=== PATIENT | male | born 1940 | race Caucasian/White ===

== ENCOUNTER 2016-10-28 22:34 | Inpatient (IN) ==
--- NOTE | 2016-10-28 22:57 | Emergency Department Note ---
Disposition Clinical Impression: Cellulitis, Dehydration, Vomiting, Bandemia, Gastroenteritis Disposition: Admitted As Inpatient Condition: Good [facility] Care Provider[facility] - Forms: Work/School Release, ED Satisfaction Letter Time of Disposition: 02:40 General Adult HPI - General Chief complaint: ED General Medical Stated complaint: Vomiting/temp Time Seen by Provider: 10/28/16 22:40 Source: patient, EMS Limitations: no limitations Nursing Notes Reviewed: Yes Vital Signs Reviewed: Yes - History of Present Illness HPI Narrative: 75-year-old male presents emergency room for nausea vomiting since today. States he does not feel well. Has had low-grade fevers and diaphoresis today. He also thinks he has been vomiting blood at times today but then serially throughout once and then states that it was brown in color. He thinks his stool has been black and brown at times but is uncertain. He denies any abdominal pain. No chest pain or shortness of breath. He thinks he is on a blood thinner but cannot remember it. He is also complaining of severe swelling of his right distal lower extremity. Denies any history of pulmonary embolus or DVT. He does have a history of atrial fibrillation. Pain Scale: 0 Treatments Prior to Arrival: none - Related Data Home Medications Medication Instructions Recorded Confirmed Allopurinol [Zyloprim 300 MG] 300 mg PO DAILY 03/14/16 03/14/16 Aspirin [Ecotrin] 325 mg PO DAILY 03/14/16 03/14/16 Carvedilol [Coreg] 25 mg PO BID 03/14/16 03/14/16 Chlorhexidine Gluconate [Peridex] 15 ml MM BID PRN 03/14/16 03/14/16 Dextran 70/Hypromellose/Pf 1 drop BOTH EYES 5XD PRN 03/14/16 03/14/16 [Artificial Tears Drops] Furosemide [Lasix] 10 mg PO DAILY 03/14/16 03/14/16 Lisinopril [Zestril] 10 mg PO DAILY 03/14/16 03/14/16 Magnesium Hydroxide [Milk of 30 ml PO DAILY PRN 03/14/16 03/14/16 Magnesia] Magnesium Oxide [Mag-Ox] 400 mg PO BID 03/14/16 03/14/16 Omeprazole [PriLOSEC] 20 mg PO BID 03/14/16 03/14/16 Ondansetron HCl [Zofran] 4 mg PO Q6H PRN 03/14/16 03/14/16 Rivaroxaban [Xarelto] 20 mg PO DAILY 03/14/16 03/14/16 Sennosides/Docusate Sodium 2 tab PO BID PRN 03/14/16 03/14/16 [Senna-Docusate Sodium Tablet] Simvastatin [Zocor] 40 mg PO DAILY 03/14/16 03/14/16 Tramadol HCl [Ultram] 50 mg PO Q6H PRN 03/14/16 03/14/16 Previous Rx's Medication Instructions Recorded Docusate [Colace] 100 mg PO BID #30 capsule 03/15/16 OxyCODONE/APAP 5/325 [Percocet 1 each PO Q6HR PRN #30 tablet 03/15/16 5/325 MG] Allergies Allergy/AdvReac Type Severity Reaction Status Date / Time No Known Allergies Allergy Verified 03/13/16 23:32 Constitutional: Reports: fever, chills ENT ED: Denies: ear pain Cardiovascular: Reports: other (Lower extremity swelling). Denies: chest pain, palpitations Respiratory: Denies: cough, dyspnea, wheezes Gastrointestinal: Reports: nausea, vomiting. Denies: abdominal pain, diarrhea, constipation Genitourinary: Reports: as per HPI Musculoskeletal: Reports: as per HPI Integumentary: Reports: as per HPI Neurological: Reports: as per HPI Psychiatric: Reports: as per HPI Endocrine: Reports: as per HPI Hematological/Lymphatic: Reports: as per HPI Past Medical History - Past Medical History Medical history: Reports: atrial fibrillation, CVA, GERD, other Psychiatric history: Reports: no psych history - Social History Smoking Status: Never smoker Smokeless Tobacco Status: No Alcohol use: Reports: occasionally Drug use: Reports: none Physical Exam - General Limitations: no limitations General appearance: alert, in no apparent distress - Head Head exam: atraumatic, normocephalic - Eye Eye exam: Present: normal appearance - ENT ENT exam: normal exam, normal oropharynx - Neck Neck exam: Present: normal inspection - Chest Chest inspection: Present: normal inspection, symmetric chest wall rise - Respiratory Respiratory exam: Present: normal lung sounds bilaterally. Absent: respiratory distress, wheezes - Cardiovascular Cardiovascular exam: Present: regular rate, irregular rhythm - Abdominal Exam Abdominal exam: Present: soft, Non-Tender, normal bowel sounds. Absent: tenderness, distention - Extremities Exam Extremities exam: Present: tenderness, pedal edema, calf tenderness (Patient has significant swelling of the distal right lower extremity with some blister formation in severe redness. It is warm to touch about the portillo and calf. It is only on the right side.) - Back Exam Back exam: Present: normal inspection - Neurological Exam Neurological exam: Present: alert, oriented X3 - Psychiatric Psychiatric exam: Present: normal affect, normal mood - Skin Skin exam: Present: diaphoresis Course Course Narrative: Patient's Hemoccult was negative. No evidence of any blood. Patient elevation and the BUN/creatinine consistent with some dehydration. Chest x-ray was negative. Patient did have an elevated white count with a left shift including bands. I did order blood cultures. It appears as though he has got a cellulitis of the right lower extremity. It was negative for DVT on the Doppler exam. Patient will need to be admitted for the vomiting diarrhea dehydration and cellulitis. Vital Signs Temperature 98.8 F 10/28/16 22:37 Pulse Rate 97 10/28/16 22:37 Respiratory Rate 24 10/28/16 22:37 Blood Pressure 101/53 10/28/16 22:37 O2 Sat by Pulse Oximetry 100 10/28/16 22:37 Temperature 98.8 F 10/28/16 22:37 Pulse Rate 95 10/29/16 01:35 Respiratory Rate 18 10/29/16 01:35 Blood Pressure 107/68 10/29/16 01:35 O2 Sat by Pulse Oximetry 98 10/29/16 01:35 Oxygen Delivery Oxygen Delivery Room Air Medical Decision Making - Medical Records Medical records reviewed: Yes I reviewed the patient's medical records. - Lab Data Lab results reviewed: Yes I reviewed the patient's lab results. Result diagrams: 10/28/16 23:02 10/28/16 23:02 Lab Results 10/28/16 10/28/16 10/28/16 Range/Units 23:02 23:02 23:02 WBC 12.4 H (4.3-11.1) K/mcL RBC 3.84 L (4.19-5.50) M/mcL Hgb 11.0 L (12.9-16.9) g/dL Hct 34.0 L (37.5-50.1) % MCV 88.5 (83.0-100.0) fL MCH 28.6 (28.0-33.3) pg MCHC 32.4 (31.6-35.5) g/dL RDW 14.5 (11.5-14.5) % Plt Count 124 L (140-400) K/mcL MPV 11.0 (9.4-12.4) fL Seg Neutrophils % 62.0 % Band Neutrophils % 27.0 H (0-4) % Lymphocytes % 8.0 % Monocytes % 3.0 % Neutrophils # 11.0 H (1.6-8.9) K/mcL Lymphocytes # 1.0 (0.6-4.6) K/mcL Monocytes # 0.4 (0.0-1.3) K/mcL Platelet Estimate Slight Decrease L (Normal) Large Platelets Present A (Not Present) PT 27.0 H (9.4-12.1) Seconds INR 2.4 APTT 35.8 (26.0-36.0) Seconds Sodium 133 L (136-145) mEq/L Potassium 5.1 H (3.5-4.5) mEq/L Chloride 105 (98-109) mEq/L Carbon Dioxide 23 (19-29) mEq/L BUN 66 H (8-26) mg/dL Creatinine 1.88 H (0.72-1.25) mg/dL Est GFR ( Amer) 43 L (> 60) Est GFR (Non-Af Amer) 35 L (> 60) BUN/Creatinine Ratio 35 H (6-26) Glucose 170 H (70-99) mg/dL Calculated Osmolality 299 (280-300) Lactic Acid (0.5-2.2) mmol/L Calcium 9.3 (8.6-10.8) mg/dL Total Bilirubin 1.0 (0.2-1.2) mg/dL Direct Bilirubin 0.5 (0.0-0.5) mg/dL Indirect Bilirubin 0.5 (0.0-1.2) mg/dL AST 37 H (5-34) Units/L ALT 20 (0-55) Units/L Alkaline Phosphatase 50 (38-126) Units/L Troponin I (0-0.03) ng/mL Serum Total Protein 4.7 L (6.0-8.3) g/dL Albumin 2.2 L (3.5-5.0) g/dL Globulin 2.5 (2.4-3.5) g/dL Albumin/Globulin Ratio 0.9 L (1.1-2.2) Lipase 31 (8-78) Units/L Stool Occult Blood (Negative) 10/28/16 10/28/16 10/28/16 Range/Units 23:02 23:02 23:22 WBC (4.3-11.1) K/mcL RBC (4.19-5.50) M/mcL Hgb (12.9-16.9) g/dL Hct (37.5-50.1) % MCV (83.0-100.0) fL MCH (28.0-33.3) pg MCHC (31.6-35.5) g/dL RDW (11.5-14.5) % Plt Count (140-400) K/mcL MPV (9.4-12.4) fL Seg Neutrophils % % Band Neutrophils % (0-4) % Lymphocytes % % Monocytes % % Neutrophils # (1.6-8.9) K/mcL Lymphocytes # (0.6-4.6) K/mcL Monocytes # (0.0-1.3) K/mcL Platelet Estimate (Normal) Large Platelets (Not Present) PT (9.4-12.1) Seconds INR APTT (26.0-36.0) Seconds Sodium (136-145) mEq/L Potassium (3.5-4.5) mEq/L Chloride (98-109) mEq/L Carbon Dioxide (19-29) mEq/L BUN (8-26) mg/dL Creatinine (0.72-1.25) mg/dL Est GFR ( Amer) (> 60) Est GFR (Non-Af Amer) (> 60) BUN/Creatinine Ratio (6-26) Glucose (70-99) mg/dL Calculated Osmolality (280-300) Lactic Acid 2.0 (0.5-2.2) mmol/L Calcium (8.6-10.8) mg/dL Total Bilirubin (0.2-1.2) mg/dL Direct Bilirubin (0.0-0.5) mg/dL Indirect Bilirubin (0.0-1.2) mg/dL AST (5-34) Units/L ALT (0-55) Units/L Alkaline Phosphatase (38-126) Units/L Troponin I 0.07 H* (0-0.03) ng/mL Serum Total Protein (6.0-8.3) g/dL Albumin (3.5-5.0) g/dL Globulin (2.4-3.5) g/dL Albumin/Globulin Ratio (1.1-2.2) Lipase (8-78) Units/L Stool Occult Blood Negative (Negative) - Radiology Data Radiology results reviewed: Yes I reviewed the patient's radiology results. - EKG Data EKG #1 EKG results narrative: Rate of 92. Atrial fibrillation present. QRS 101. QTC 375. No signs of acute ischemia. atrial fibrillation was noted on previous EKG dating 2015. Critical Care Time Critical Care Time: Yes Total Critical Care Time: 35 Attestation: Critical care time spent in medical management of the patient's significant cellulitis, dehydration and workup of his vomiting and diarrhea and possible GI bleed.
[2016-10-28 23:10] LABS: Mean Corpuscular HGB Conc 32.4 g/dL (31.6-35.5); Mean Corpuscular Hemoglobin 28.6 pg (28.0-33.3); Mean Corpuscular Volume 88.5 fL (83.0-100.0); Platelet Count 124 K/mcL (140-400); Red Blood Count 3.84 M/mcL (4.19-5.50); Red Cell Distribution Width 14.5 % (11.5-14.5)
[2016-10-28 23:27] LABS: Albumin 2.2 g/dL (3.5-5.0); Albumin/Globulin Ratio 0.9 (1.1-2.2); Bilirubin,Direct 0.5 mg/dL (0.0-0.5); Bilirubin,Indirect 0.5 mg/dL (0.0-1.2); Calcium 9.3 mg/dL (8.6-10.8); Globulin 2.5 g/dL (2.4-3.5); Potassium 5.1 mEq/L (3.5-4.5); Total Protein 4.7 g/dL (6.0-8.3)
[2016-10-28 23:29] LABS: INR 2.4
[2016-10-28 23:31] LABS: Activated Partial Thrombo Time 35.8 Seconds (26.0-36.0)
[2016-10-28 23:40] LABS: Monocytes # 0.4 K/mcL (0.0-1.3)
[2016-10-28 23:41] LABS: Large Platelets Present (Not Present); Platelet Estimate Slight Decrease (Normal)
[2016-10-29] MEDS ORDERED: Ampicillin/Sulbactam 3,000 MG in 0.9 % Sodium Chloride Mini Bag 100 ML IVPB ONE (00:23)
[2016-10-29] MEDS ORDERED: 0.9 % Sodium Chloride 1,000 ML IVC ONE (01:52)
[2016-10-29] MEDS ORDERED: Ondansetron ODT 4 MG TAB.RAPDIS PO PRN ×2 (03:12→19:36)
[2016-10-29] MEDS ORDERED: *HR* OxyCODONE/APAP 5/325 TABLET PO PRN (03:12)
[2016-10-29] MEDS ORDERED: traMADol 50 MG TABLET PO PRN (03:12)
[2016-10-29] MEDS ORDERED: Naloxone 0.4 MG/ML INJ IVP PRN ×2 (03:13→19:36)
--- NOTE | 2016-10-29 03:21 | Internal Med History&Physical ---
Date of Encounter: 10/29/16 Time of Encounter: 03:20 Assessment and Plan (1) Cellulitis Current visit: Yes Status: Acute IV vanco, renally dosed, pharmacy to assist, monitor vanco Qualifiers: Site of cellulitis of extremity: lower extremity Laterality: right Qualified Code(s): L03.115 - Cellulitis of right lower limb (2) Gastroenteritis Current visit: Yes Status: Acute Symptoms suggestive of acute viral gastroenteritis. Supportive IVF. conservative management (3) FARIBA (acute kidney injury) Current visit: Yes Status: Acute 2/2 viral gastroenteritis. Pre-renal. Hydration for now. Avoid nephrotoxins if able (4) Atrial fibrillation Current visit: No Status: Chronic continue coreg and xarelto Qualifiers: Atrial fibrillation type: chronic Qualified Code(s): I48.2 - Chronic atrial fibrillation (5) Hyponatremia Current visit: Yes Status: Acute 2/2 pre-renal. IVF Internal Medicine - H&P: HPI Chief complaint: Diarrhea/N/V, LLE swelling/erythema History of present illness: Mr. Gore is a 75 year old male [facility] patient with hx of AFib on xarelto, HTN who presents with 1)acute viral gastroenteritis, 2)FARIBA and 3)worsening swelling of LLE found to have overlying cellulitis. He reports 1-2 day hx of diarrhea - dark (FOBT negative) associated with dry heaving and non-bloody emesis associated with decreased PO intake. Also noted worsening swelling and discomfort in his RLL in the last few days. No improving or worsening factors. He takes lasix at home. In the ED, RLL US was w/o evidence of VTE. CT A/P was grossly w/o acute issues. EKG with AFib. Past Med Surg Social Fam HX - Past Medical History Medical history: atrial fibrillation, CVA, GERD, other Psychiatric history: no psych history - Social History Smoking Status: Never smoker Smokeless Tobacco Status: No Alcohol use: occasionally Drug use: none - Family History Mother Adopted: No Living Status: Hx Family Cardiac Disorders: No Hx Family Respiratory Disorders: No Hx Family Cancer: No Hx Family GI Disorders: No Hx Family Endocrine Disorder: No Hx Family Neuromuscular Disorders: No Hx Family Neurologic Disorders: No Hx Family HEENT Disorders: No Hx Family Autoimmune Disorders: No Internal Medicine - H&P: Meds Allopurinol [Zyloprim 300 MG] 300 mg PO DAILY 03/14/16 [History] Aspirin [Ecotrin] 325 mg PO DAILY 03/14/16 [History] Carvedilol [Coreg] 25 mg PO BID 03/14/16 [History] Chlorhexidine Gluconate [Peridex] 15 ml MM BID PRN 03/14/16 [History] Dextran 70/Hypromellose/Pf [Artificial Tears Drops] 1 drop BOTH EYES 5XD PRN [History] Furosemide [Lasix] 10 mg PO DAILY 03/14/16 [History] Lisinopril [Zestril] 10 mg PO DAILY 03/14/16 [History] Magnesium Hydroxide [Milk of Magnesia] 30 ml PO DAILY PRN 03/14/16 [History] Magnesium Oxide [Mag-Ox] 400 mg PO BID 03/14/16 [History] Omeprazole [PriLOSEC] 20 mg PO BID 03/14/16 [History] Ondansetron HCl [Zofran] 4 mg PO Q6H PRN 03/14/16 [History] Rivaroxaban [Xarelto] 20 mg PO DAILY 03/14/16 [History] Sennosides/Docusate Sodium [Senna-Docusate Sodium Tablet] 2 tab PO BID PRN 03/14 [History] Simvastatin [Zocor] 40 mg PO DAILY 03/14/16 [History] Tramadol HCl [Ultram] 50 mg PO Q6H PRN 03/14/16 [History] Docusate [Colace] 100 mg PO BID #30 capsule 03/15/16 [Rx] OxyCODONE/APAP 5/325 [Percocet 5/325 MG] 1 each PO Q6HR PRN #30 tablet 03/15/16 [Rx] Allergies No Known Allergies Allergy (Verified 03/13/16 23:32) All Systems PM: A 10-system review of systems was performed and is negative for pertinent findings except as documented above in the HPI. Review of systems: ROS 14 point review of systems reviewed as best as possible given presentation. Pertinent positive or negative as per HPI or otherwise reviewed as negative - Constitutional Vitals: Temp Pulse Resp BP Pulse Ox 98.8 F 95 18 107/68 98 10/28/16 22:37 10/29/16 01:35 10/29/16 01:35 10/29/16 01:35 10/29/16 01:35 Exam: General - AAO x 3 Psych - Appropriate affect/speech. No agitation Eyes - [place]. Eye lids intact. No scleral icterus ENT - Oral mucosa pink, dentition intact. External ear clear/dry/intact. No thyromegaly Heart - irregularly irregular. S1 and S2 present. No added HS/murmurs appreciated. No elevated JVD appreciated. Lung - Adequate air entry b/l, No crackes/wheezes appreciated GI - Soft, non-tender. No hepatosplenomegaly/ascities. BS+ - No CVA/suprapubic tenderness or palpable bladder distension Skin - right lower extremity swelling +2 edema, erythema MSK - Joints with normal ROM. No joint swellings Internal Med - H&P Results - Labs CBC & Chem 7: 10/28/16 23:02 10/28/16 23:02 - Impressions ITS Impressions Abdomen/Pelvis CT 10/29/16 23:36 IMPRESSION: 1. Study is limited due to lack of IV contrast and motion artifact. 2. No definite acute abnormality of the abdomen or pelvis. 3. Mild nonspecific perinephric stranding. 4. Diffuse bladder wall thickening with a 2.2 cm diverticulum projecting off the anterior wall. Findings could represent sequela of chronic obstruction from BPH. Correlate for underlying cystitis. 5. Mild area of nonspecific stranding is noted along the right external iliac vessel of uncertain clinical significance. 6. Normal appendix. 7. No acute bowel abnormality. 8. Moderate to severe degenerative changes lumbar spine with and age-indeterminate compression deformity of the L1 vertebral body. D/ / Kamran Greco MD / Kamran Greco MD Interpreting Provider: Kamran Greco MD - VTE Reasons for not Prescribing Prophylaxis: Not indicated-Anticoagulated or INR therapeutic
[2016-10-29] MEDS ORDERED: Ipratropium/Albuterol Neb 3 ML IH PRN (03:32)
[2016-10-29] MEDS ORDERED: Vancomycin 2,000 MG in D5% in Water 500 ML IVPB ONE (04:00)
[2016-10-29] MEDS ORDERED: Vancomycin 1,000 MG in D5% in Water 250 ML IVPB SCH (04:00)
[2016-10-29 04:29] LABS: Hematocrit 33.4 % (37.5-50.1); Hemoglobin 10.6 g/dL (12.9-16.9); Mean Corpuscular HGB Conc 31.7 g/dL (31.6-35.5); Mean Corpuscular Hemoglobin 28.3 pg (28.0-33.3); Mean Corpuscular Volume 89.1 fL (83.0-100.0); Mean Platelet Volume 10.9 fL (9.4-12.4); Platelet Count 119 K/mcL (140-400); Red Blood Count 3.75 M/mcL (4.19-5.50); Red Cell Distribution Width 14.4 % (11.5-14.5)
[2016-10-29] MEDS: 0.9 % Sodium Chloride 1,000 ML IVC SCH ×3 (05:16→20:14)
[2016-10-29] MEDS: Ipratropium/Albuterol Neb 3 ML IH SCH ×2 (07:49→16:10)
[2016-10-29 08:00] LABS: Magnesium 1.2 mg/dL (1.6-2.6)
--- NOTE | 2016-10-29 08:05 | Venous Imaging Report ---
LE Venous Duplex Patient Name:Ciro Gore Order Number:[id number] Procedure Date:10/28/2016 Date:2Age:75 yrs Gender:Male Location:[facility] Room #: 2 Director Report:Tacos Mcneill Referring MD:Ronald Aleman, assembler clip on sunglasses:[facility] Reading MD:Rodolfo Teresa MD , FACS Primary Indications:Right leg swelling and redness Secondary Indications: Impressions: Right lower extremity: normal superficial and deep exam. Left lower extremity: normal contralateral exam. Recommendations: Critical findings reported to Mary SHEPHERD in person by Tacos Mcneill. Findings Venous Duplex Results: Right: The right peroneal vein was not well visualized. Prior Study: No prior study available for comparison. Lower Extremity Venous Duplex Side Vein Compress Spontaneous Flow Augment Diameter (cm) Depth (cm) Right Distal Iliac Normal Yes Phasic Yes Right Common Femoral Normal Yes Phasic Yes Right Superficial Femoral Normal Yes Phasic Yes Right Popliteal Normal Yes Phasic Yes Right Posterior Tibial Normal Yes Phasic Yes Right Peroneal Normal Yes Phasic Yes Right Saphenofemoral [place]unction Normal Yes Phasic Yes Right Great Saphenous Normal Yes Phasic Yes Right Lesser Saphenous Normal Yes Phasic Yes Left Common Femoral Normal Yes Phasic Yes Updated by Rodolfo Teresa MD, FACS on 10/29/2016 7:59:59 AM Rodolfo Teresa MD electronically signed on 10/29/2016 8:00:17 AM with status of Final
[2016-10-29] MEDS ORDERED: *HR* Rivaroxaban 10 MG TABLET PO SCH (09:00)
[2016-10-29] MEDS ORDERED: Aspirin Enteric Coated 325 MG Tablet PO SCH (09:00)
--- NOTE | 2016-10-29 09:15 | Electrocardiograph Report ---
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
[2016-10-29] MEDS ORDERED: Magnesium Sulfate 2 GM in D5% in Water 100 ML IVPB ONE (11:58)
[2016-10-29] MEDS ORDERED: Albuterol 2.5 MG/3 ML NEBULIZER IH PRN ×2 (11:59→19:36)
--- NOTE | 2016-10-29 15:32 | Electrocardiograph Report ---
[place] [address] Test Date: 2016-10-29 Pat Name: Ciro Gore Department: 115 Room: 3A Gender: M Waitstaff: : 1940 Requested By: Grupo Patricio Order Number: [id number] Reading MD: Renata Campos Measurements Intervals [place] Rate: 85 P: ME: 0 QRS: -21 QRSD: 97 T: 28 QT: 334 QTc: 376 Interpretive Statements ATRIAL FIBRILLATION BORDERLINE LEFT AXIS DEVIATION ABNORMAL RHYTHM ECG Electronically Signed On 10-29-2016 15:31:23 EDT by Renata Campos
--- NOTE | 2016-10-29 16:27 | Internal Med Progress Note ---
Date of Encounter: 10/29/16 Time of Encounter: 10:45 - Assessment and plan (1) GI bleed Current Visit: Yes Status: Acute Assessment and plan: Acute GI bleed - patient has melena - probably due to Xarelto and aspirin use Significant drop in H&H Gastroenterology consult pending Type and screen stat, 2 units PRBC transfusion stat Monitor H&H closely Qualifiers: GI bleed type/associated pathology: melena Qualified Code(s): K92.1 - Melena (2) Anemia due to acute blood loss Current Visit: Yes Status: Acute Assessment and plan: Anemia secondary to acute blood loss - secondary to acute GI bleed Type and screen stat, 2 units PRBC transfusion stat H&H every 6 hours Hold Xarelto (3) Cellulitis Current Visit: Yes Status: Acute Assessment and plan: Acute cellulitis of right lower leg Continue IV vancomycin and IV Rocephin Cultures pending Ultrasound Doppler - negative for DVT Chest x-ray - right lung was clear, small effusion on the left side EKG - atrial fibrillation Troponin - 0.06 CT of the abdomen and pelvis - no definite acute abnormality Cardiac telemetry, labs in a.m. Qualifiers: Site of cellulitis: extremity Site of cellulitis of extremity: lower extremity Laterality: right Qualified Code(s): L03.115 - Cellulitis of right lower limb (4) Atrial fibrillation Current Visit: No Status: Chronic Assessment and plan: Chronic atrial fibrillation, rate controlled - patient is on carvedilol and on Xarelto for anticoagulation Hold Xarelto Qualifiers: Atrial fibrillation type: chronic Qualified Code(s): I48.2 - Chronic atrial fibrillation (5) Gastroenteritis Current Visit: Yes Status: Acute Assessment and plan: Initial symptoms suggestive of acute viral gastroenteritis, continue IV fluids (6) FARIBA (acute kidney injury) Current Visit: Yes Status: Acute Assessment and plan: Acute kidney injury likely secondary to gastroenteritis - continue IV fluids Labs in a.m. - Time Spent With Patient 25 - 35 minutes - Subjective Interval history: Patient is awake and alert. Not in any distress. Complains of generalized weakness. Denies chest pain or shortness of breath. Patient presented with complaints of diarrhea and nausea and vomiting and worsening right lower leg swelling and redness. Patient has been admitted for acute cellulitis. Patient has bilateral 3+ pitting edema which is much worse on the right side with bilateral stasis dermatitis and erythema on the right side. Patient did have a bowel movement with dark colored stool. Initial fecal Hemoccult was negative but the second one is positive. Patient's H&H has now dropped and he will require PRBC transfusion. Gastroenterology consult is pending. No other acute events or complaints. - Constitutional Vitals: Temp Pulse Resp BP Pulse Ox 98.6 F 86 17 132/79 98 10/29/16 15:22 10/29/16 15:22 10/29/16 15:22 10/29/16 15:22 10/29/16 15:22 General appearance: Present: A&O X 3, morbidly obese, no acute distress, answers questions appropriately Exam: Generalized weakness, ill-appearing - Head Head exam: Present: atraumatic - Eye Eye exam: Present: EOMI - ENT ENT exam: Present: mucous membranes dry - Neck Neck exam general surgery: Present: supple - Respiratory Respiratory exam: Present: CTAB. Absent: rales, rhonchi, wheezes, tachypnea - Cardiovascular Cardiovascular exam: Present: RRR, +S1, +S2, systolic murmur - GI/Abdominal GI/Abdominal exam: Present: soft, no peritoneal signs. Absent: distended, firm , guarding, rigid, tenderness - Extremities Exam Extremities exam: Present: pedal edema (Bilateral leg pitting edema 3+, worse on the right side), tenderness (Right lower leg edema and tenderness), radial pulses palpable and symetrical. Absent: cyanotic - Skin Additional comments: Bilateral lower leg stasis dermatitis, erythema and tenderness over right lower leg Internal Medicine: Result - Labs CBC & Chem 7: 10/29/16 16:04 10/29/16 06:36 Labs: Short CBC 10/29/16 Range/Units 16:04 Hgb 7.0 L D (12.9-16.9) g/dL Hct 21.0 L (37.5-50.1) % Cardiac Enzymes 10/29/16 Range/Units 08:53 Troponin I 0.06 H* (0-0.03) ng/mL - ABG Interpretation ABG results: PT/INR, D-dimer PT 27.0 Seconds (9.4-12.1) H 10/28/16 23:02 - Impressions Impressions Abdomen/Pelvis CT 08/01/17 23:36 IMPRESSION: 1. Study is limited due to lack of IV contrast and motion artifact. 2. No definite acute abnormality of the abdomen or pelvis. 3. Mild nonspecific perinephric stranding. 4. Diffuse bladder wall thickening with a 2.2 cm diverticulum projecting off the anterior wall. Findings could represent sequela of chronic obstruction from BPH. Correlate for underlying cystitis. 5. Mild area of nonspecific stranding is noted along the right external iliac vessel of uncertain clinical significance. 6. Normal appendix. 7. No acute bowel abnormality. 8. Moderate to severe degenerative change of the lumbar spine with an age-indeterminate compression deformity of the L1 vertebral body. D/ / 10/29/2016 07:26:06 Kamran Greco MD / yelena Interpreting Provider: Kamran Greco MD - VTE Reasons for not Prescribing Prophylaxis: Not indicated-Anticoagulated or INR therapeutic Consult Discharge Plan - Plan [facility]errals: [facility] [Primary Care Provider] -
[2016-10-29] MEDS ORDERED: 0.9 % Sodium Chloride 250 ML ONE (18:05)
[2016-10-29] MEDS ORDERED: Pantoprazole 40 MG VIAL IVP SCH (18:40)
[2016-10-29] MEDS ORDERED: Pantoprazole 40 MG VIAL IVP ONE ×2 (19:09→19:36)
[2016-10-29] MEDS ORDERED: Pantoprazole 40 MG in 0.9 % Sodium Chloride Mini Bag 100 ML IVC SCH (19:15)
--- NOTE | 2016-10-29 19:47 | Internal Medicine Consult Note ---
Date of Encounter: 10/29/16 Time of Encounter: 19:45 - Assessment and Plan (1) Anemia due to acute blood loss Current Visit: Yes Status: Acute Assessment and plan: Because of the change in vitals, and his sudden drop in hemoglobin today, he does require some urgency. Will place him in the ICU, also he will receive appropriate transfusion I will provide some vitamin K as his INR somewhat elevated. I have discussed with the nursing staff in room the need for upper endoscopy and the plan is to do that in the morning risks and benefits have been discussed with him. If indeed his upper endoscopy looks normal, he would potentially benefit from an upper scope as well. Certainly this complicated with aspirin and Xarelto therapy (2) FARIBA (acute kidney injury) Current Visit: Yes Status: Acute (3) Cellulitis Current Visit: Yes Status: Acute Qualifiers: Site of cellulitis: extremity Site of cellulitis of extremity: lower extremity Laterality: right Qualified Code(s): L03.115 - Cellulitis of right lower limb (4) GI bleed Current Visit: Yes Status: Acute Assessment and plan: Differential to include esophagitis, peptic ulcer disease, AVM, diverticular bleeding also to be considered Qualifiers: GI bleed type/associated pathology: melena Qualified Code(s): K92.1 - Melena Internal Medicine - CN: HPI - Data of Consult Requesting Physician: Purvi Zhu MD - Consult Narrative Reason for consult: Hypotension and maroon stools History of present illness: Mr. Kay is a 75 year old male. I was asked to see this gentleman for possible need of endoscopy by the hospitalist service. He actually presented with cellulitis of the right leg, firstly this morning developed bloody maroon bowel movements of large amount. Recheck hemoglobin showed a 4.0 drop in his hemoglobin, and systolic blood pressure down to 86. Mr. kay is quite comfortable at this time, no complaints, has never had GI bleeding in the past. Has had colonoscopies in the past. But does not recall the last time. Reports no anti-inflammatory use, reports no heartburn and no previous history of ulcer disease. He's had no nausea no vomiting. [facility] Past Med Surg Social Fam HX - Past Medical History Medical history: atrial fibrillation, CVA, GERD, other Psychiatric history: no psych history - Social History Smoking Status: Never smoker Smokeless Tobacco Status: No Alcohol use: occasionally Drug use: none - Family History Mother Adopted: No Living Status: Hx Family Cardiac Disorders: No Hx Family Respiratory Disorders: No Hx Family Cancer: No Hx Family GI Disorders: No Hx Family Endocrine Disorder: No Hx Family Neuromuscular Disorders: No Hx Family Neurologic Disorders: No Hx Family HEENT Disorders: No Hx Family Autoimmune Disorders: No - Constitutional Constitutional: no anorexia, no chills, no excessive sweating, no fatigue, no fever(s), no weakness - Cardiovascular Cardiovascular ROS IM: edema, irregular heart rhythm, no chest pain, no diaphoresis, no dyspnea, no paroxysmal nocturnal dyspnea, no syncope - Respiratory Respiratory: no cough, no dyspnea, no hemoptysis - Gastrointestinal Gastrointestinal: change in bowel habits, hematochezia, no abdominal pain, no coffee ground emesis, no diarrhea, no dyspepsia, no dysphagia, no nausea, no vomiting - Neurological Neurological ROS: confusion, weakness Internal Medicine - CN: Meds Allopurinol [Zyloprim 300 MG] 300 mg PO DAILY 03/14/16 [History] Aspirin [Ecotrin] 325 mg PO DAILY 03/14/16 [History] Carvedilol [Coreg] 25 mg PO BID 03/14/16 [History] Chlorhexidine Gluconate [Peridex] 15 ml MM BID PRN 03/14/16 [History] Dextran 70/Hypromellose/Pf [Artificial Tears Drops] 1 drop BOTH EYES 5XD PRN [History] Furosemide [Lasix] 10 mg PO DAILY 03/14/16 [History] Lisinopril [Zestril] 10 mg PO DAILY 03/14/16 [History] Magnesium Hydroxide [Milk of Magnesia] 30 ml PO DAILY PRN 03/14/16 [History] Magnesium Oxide [Mag-Ox] 400 mg PO BID 03/14/16 [History] Omeprazole [PriLOSEC] 20 mg PO BID 03/14/16 [History] Ondansetron HCl [Zofran] 4 mg PO Q6H PRN 03/14/16 [History] Rivaroxaban [Xarelto] 20 mg PO DAILY 03/14/16 [History] Sennosides/Docusate Sodium [Senna-Docusate Sodium Tablet] 2 tab PO BID PRN 03/14 [History] Simvastatin [Zocor] 40 mg PO DAILY 03/14/16 [History] Tramadol HCl [Ultram] 50 mg PO Q6H PRN 03/14/16 [History] Docusate [Colace] 100 mg PO BID #30 capsule 03/15/16 [Rx] OxyCODONE/APAP 5/325 [Percocet 5/325 MG] 1 each PO Q6HR PRN #30 tablet 03/15/16 [Rx] Allergies No Known Allergies Allergy (Verified 03/13/16 23:32) Internal Medicine - CN: Exam - Constitutional Vitals: Temp Pulse Resp BP Pulse Ox 98.5 F 95 15 86/50 100 10/29/16 18:27 10/29/16 18:27 10/29/16 18:27 10/29/16 18:27 10/29/16 18:27 General appearance IM: Present: cooperative, A&O X 2, morbidly obese, pleasant, no acute distress - Head Head exam: Present: atraumatic - Eye Eye exam: Present: sclera anicteric - ENT ENT exam: Present: mucous membranes moist - Neck Neck exam general surgery: Present: full ROM, supple, trachea midline. Absent: nuchal rigidity - Respiratory Respiratory exam: Present: CTAB - Cardiovascular Cardiovascular exam IM: Present: distant heart sounds, irregular rhythm - GI/Abdominal GI/Abdominal exam IM: Present: normal bowel sounds, soft, no peritoneal signs. Absent: rebound, rigid, tenderness - Rectal Rectal exam: Present: deferred Internal Medicine - CN: Reslt - Labs CBC & Chem 7: 10/29/16 16:04 10/29/16 06:36 Labs: Short CBC 10/29/16 Range/Units 16:04 Hgb 7.0 L D (12.9-16.9) g/dL Hct 21.0 L (37.5-50.1) % Cardiac Enzymes 10/29/16 Range/Units 08:53 Troponin I 0.06 H* (0-0.03) ng/mL - ABG Interpretation ABG results: PT/INR, D-dimer PT 27.0 Seconds (9.4-12.1) H 10/28/16 23:02 - Impressions Impressions Abdomen/Pelvis CT 10/29/16 23:36 IMPRESSION: 1. Study is limited due to lack of IV contrast and motion artifact. 2. No definite acute abnormality of the abdomen or pelvis. 3. Mild nonspecific perinephric stranding. 4. Diffuse bladder wall thickening with a 2.2 cm diverticulum projecting off the anterior wall. Findings could represent sequela of chronic obstruction from BPH. Correlate for underlying cystitis. 5. Mild area of nonspecific stranding is noted along the right external iliac vessel of uncertain clinical significance. 6. Normal appendix. 7. No acute bowel abnormality. 8. Moderate to severe degenerative change of the lumbar spine with an age-indeterminate compression deformity of the L1 vertebral body. D/ / 10/29/2016 07:26:06 Kamran Greco MD / yelena Interpreting Provider: Kamran Greco MD Consult Discharge Plan - Plan [facility]: [facility] [Primary Care Provider[facility] -
[2016-10-29] MEDS ORDERED: *HR* Phytonadione 10 MG/ML AMPUL SQ ONE ×2 (19:56→20:30)
[2016-10-29] MEDS: Pantoprazole 40 MG in 0.9 % Sodium Chloride Mini Bag 100 ML IVC SCH (20:18)
[2016-10-30] MEDS: Pantoprazole 40 MG in 0.9 % Sodium Chloride Mini Bag 100 ML IVC SCH ×5 (00:42→21:12)
[2016-10-30] MEDS: 0.9 % Sodium Chloride 1,000 ML IVC SCH ×2 (00:42→11:49)
[2016-10-30 01:14] LABS: Hemoglobin 7.7 g/dL (12.9-16.9)
[2016-10-30 01:16] LABS: Hematocrit 23.5 % (37.5-50.1)
[2016-10-30] MEDS: Ipratropium/Albuterol Neb 3 ML IH SCH ×3 (02:21→16:09)
[2016-10-30] MEDS ORDERED: Vancomycin 1,500 MG in D5% in Water 250 ML IVPB SCH (04:00)
[2016-10-30] MEDS: Vancomycin 1,500 MG in D5% in Water 250 ML IVPB SCH (04:44)
[2016-10-30] MEDS ORDERED: 0.9 % Sodium Chloride Mini Bag 100 ML ONE (05:02)
[2016-10-30] MEDS ORDERED: Pantoprazole 40 MG VIAL IVP SCH (06:00)
[2016-10-30 07:21] LABS: Mean Corpuscular HGB Conc 32.6 g/dL (31.6-35.5); Mean Corpuscular Hemoglobin 29.2 pg (28.0-33.3); Red Cell Distribution Width 14.2 % (11.5-14.5)
[2016-10-30 07:23] LABS: Basophils % 0.1 %; Eosinophils # 0.1 K/mcL (0.0-0.6); Eosinophils % 1.3 %; Hemoglobin 7.5 g/dL (12.9-16.9); Immature Granulocytes % 0.7 % (0-4); Immature Platelets 6.2 % (1.1-6.1); Lymphocytes # 0.7 K/mcL (0.6-4.6); Lymphocytes % 7.7 %; Mean Corpuscular Volume 89.5 fL (83.0-100.0); Monocytes # 0.6 K/mcL (0.0-1.3); Monocytes % 6.4 %; Platelet Count 100 K/mcL (140-400); Red Blood Count 2.57 M/mcL (4.19-5.50); Segmented Neutrophils % 83.8 %
[2016-10-30 07:37] LABS: Calcium 8.5 mg/dL (8.6-10.8); Potassium 4.7 mEq/L (3.5-4.5)
[2016-10-30] MEDS ORDERED: *HR* FentaNYL (PF) 100 MCG/2 ML VIAL ONE (07:40)
[2016-10-30 07:47] LABS: Platelet Estimate Slight Decrease (Normal)
[2016-10-30] MEDS: *HR* Midazolam HCl 5 MG/5 ML VIAL IVP ONE ×2 (07:52→16:22)
[2016-10-30] MEDS: *HR* Midazolam HCl 2 MG/2 ML VIAL IVP PRN ×3 (07:52→08:10)
[2016-10-30] MEDS ORDERED: Simethicone 40 MG/0.6 ML MLS IR ONE (08:37)
[2016-10-30] MEDS ORDERED: *HR* FentaNYL (PF) 100 MCG/2 ML VIAL IVP PRN (08:37)
[2016-10-30] MEDS: Sucralfate 1 GM TABLET PO SCH ×3 (10:06→19:44)
[2016-10-30] MEDS ORDERED: 0.9 % Sodium Chloride 250 ML ONE (10:48)
[2016-10-30 11:21] LABS: INR 1.6; Prothrombin Time 17.2 Seconds (9.4-12.1)
--- NOTE | 2016-10-30 14:23 | Internal Med Progress Note ---
<Roney Auguste - Last Filed: 10/30/16 14:17> Date of Encounter: 10/30/16 Time of Encounter: 14:17 - Assessment and plan (1) Anemia due to acute blood loss Current Visit: Yes Status: Acute Assessment and plan: Anemia secondary to acute blood loss - secondary to acute GI bleed Transfused 4 Units of PRBC and 2 units FFP hgb up to 7.5 from 7.0. H&H every 6 hours Continue to hold Xarelto (2) GI bleed Current Visit: Yes Status: Acute Assessment and plan: Acute GI bleed - patient has melena - probably due to Xarelto and aspirin use Significant drop in H&H from 11 to 7. Now up to 7.5 Gastroenterology consulted Patient was scoped this morning and bleeding Duodenal ulcer was clipped. Non bleeding gastric ulcer and esophagitis also noted. Type and screen performed, transfused 4 units PRBC and 2 units of FFP Monitor H&H closely Qualifiers: GI bleed type/associated pathology: melena Qualified Code(s): K92.1 - Melena (3) Cellulitis Current Visit: Yes Status: Acute Assessment and plan: Acute cellulitis of right lower leg Continue IV vancomycin and IV Rocephin preliminary blood cultures are negative. Ultrasound Doppler - negative for DVT Chest x-ray - right lung was clear, small effusion on the left side EKG - atrial fibrillation Troponin - 0.06 CT of the abdomen and pelvis - no definite acute abnormality Cardiac telemetry, WBC down to 9.5 from 11.2 Qualifiers: Site of cellulitis: extremity Site of cellulitis of extremity: lower extremity Laterality: right Qualified Code(s): L03.115 - Cellulitis of right lower limb (4) Gastroenteritis Current Visit: Yes Status: Acute Assessment and plan: Initial presentation suggestive of acute viral gastroenteritis, continue IV fluids (5) Atrial fibrillation Current Visit: No Status: Chronic Assessment and plan: Patient has Chronic rate controlled atrial fibrillation - patient is on carvedilol and on Xarelto for anticoagulation Hold Xarelto Qualifiers: Atrial fibrillation type: chronic Qualified Code(s): I48.2 - Chronic atrial fibrillation (6) FARIBA (acute kidney injury) Current Visit: Yes Status: Acute Assessment and plan: Acute kidney injury likely secondary to deydration secondary to gastroenteritis - Cr 1.88 on admission now up to 1.91. continue IV fluids - Subjective Interval history: Patient had drop in hgb of 4 points. Patient was given 4 units of PRBC and 2 units of FFP. Patient had endoscopy by Dr. Lora this morning that showed a esophagitis, a stomach ulcer and a bleeding duodenal ulcer which Dr. Lora placed two clips in. Patient was seen post procedure. Patient reports nausea post procedure and some mild abdominal discomfort. Patient had one small loose dark bowel movement. - Constitutional Vitals: Temp Pulse Resp BP Pulse Ox 98 F 92 26 143/64 98 10/30/16 13:27 10/30/16 13:00 10/30/16 13:27 10/30/16 13:27 10/30/16 13:00 General appearance: Present: cooperative, A&O X 2, morbidly obese, pleasant, no acute distress - Eye Eye exam: Present: EOMI - ENT ENT exam: Present: mucous membranes moist - Respiratory Respiratory exam: Present: CTAB - Cardiovascular Cardiovascular exam: Present: RRR, +S1, +S2 - GI/Abdominal GI/Abdominal exam: Present: normal bowel sounds, soft, tenderness (mild diffuse) - Extremities Exam Extremities exam: Present: pedal edema (Bilateral leg pitting edema 3+, worse on the right side), tenderness (mild RLE), warm (RLE distal to knee) - Neurological Exam Neurological exam: Present: alert - Psychiatric Psychiatric exam: Present: normal affect, normal mood - Skin Skin exam: Present: erythema (RLE), warm (RLE) Internal Medicine: Result - Labs CBC & Chem 7: 10/30/16 07:01 10/30/16 07:01 Labs: Short CBC 10/29/16 10/30/16 10/30/16 Range/Units 16:04 00:28 07:01 WBC 9.5 (4.3-11.1) K/mcL Hgb 7.0 L D 7.7 L 7.5 L (12.9-16.9) g/dL Hct 21.0 L 23.5 L 23.0 L (37.5-50.1) % Plt Count 100 L (140-400) K/mcL Neutrophils # 8.0 (1.6-8.9) K/mcL BMP 10/30/16 07:01 Sodium 135 L Potassium 4.7 H Chloride 113 H Carbon Dioxide 16 L BUN 95 H D Creatinine 1.91 H Glucose 118 H Calcium 8.5 L - ABG Interpretation ABG results: PT/INR, D-dimer PT 17.2 Seconds (9.4-12.1) H 10/30/16 10:58 - Impressions Impressions Abdomen/Pelvis CT 10/29/16 23:36 IMPRESSION: 1. Study is limited due to lack of IV contrast and motion artifact. 2. No definite acute abnormality of the abdomen or pelvis. 3. Mild nonspecific perinephric stranding. 4. Nonobstructing left renal calculi. 5. Diffuse bladder wall thickening with a 2.2 cm diverticulum projecting off the anterior wall. Findings could represent sequela of chronic obstruction from BPH. Correlate for underlying cystitis. 6. Mild area of nonspecific stranding is noted along the right external iliac vessel of uncertain clinical significance. 7. Normal appendix. 8. No acute bowel abnormality. 9. Moderate to severe degenerative change of the lumbar spine with an age-indeterminate compression deformity of the L1 vertebral body. D/ / 10/29/2016 07:26:06 Kamran Greco MD / [email or web address] Interpreting Provider: Kamran Greco MD - VTE Reasons for not Prescribing Prophylaxis: Not indicated-Anticoagulated or INR therapeutic Consult Discharge Plan - Plan [facility]errals: [facility] [Primary Care Provider[facility] - <Owen Lora - Last Filed: 10/31/16 19:55> Date of Encounter: 10/31/16 - Assessment and plan (1) Anemia due to acute blood loss Current Visit: Yes Status: Acute (2) FARIBA (acute kidney injury) Current Visit: Yes Status: Acute (3) Cellulitis Current Visit: Yes Status: Acute Qualifiers: Site of cellulitis: extremity Site of cellulitis of extremity: lower extremity Laterality: right Qualified Code(s): L03.115 - Cellulitis of right lower limb (4) GI bleed Current Visit: Yes Status: Acute Qualifiers: GI bleed type/associated pathology: melena Qualified Code(s): K92.1 - Melena - Constitutional Vitals: Temp Pulse Resp BP Pulse Ox 98.3 F 90 28 113/62 100 10/30/16 17:07 10/30/16 17:07 10/30/16 17:07 10/30/16 17:07 10/30/16 17:07 Internal Medicine: Result - Labs CBC & Chem 7: 10/31/16 17:32 10/31/16 07:42 Labs: Short CBC 10/30/16 10/30/16 10/30/16 Range/Units 00:28 07:01 14:00 WBC 9.5 (4.3-11.1) K/mcL Hgb 7.7 L 7.5 L 8.6 L (12.9-16.9) g/dL Hct 23.5 L 23.0 L 27.2 L (37.5-50.1) % Plt Count 100 L (140-400) K/mcL Neutrophils # 8.0 (1.6-8.9) K/mcL BMP 10/30/16 07:01 Sodium 135 L Potassium 4.7 H Chloride 113 H Carbon Dioxide 16 L BUN 95 H D Creatinine 1.91 H Glucose 118 H Calcium 8.5 L - ABG Interpretation ABG results: PT/INR, D-dimer PT 17.2 Seconds (9.4-12.1) H 10/30/16 10:58 - Impressions Impressions Abdomen/Pelvis CT 10/29/16 23:36 IMPRESSION: 1. Study is limited due to lack of IV contrast and motion artifact. 2. No definite acute abnormality of the abdomen or pelvis. 3. Mild nonspecific perinephric stranding. 4. Nonobstructing left renal calculi. 5. Diffuse bladder wall thickening with a 2.2 cm diverticulum projecting off the anterior wall. Findings could represent sequela of chronic obstruction from BPH. Correlate for underlying cystitis. 6. Mild area of nonspecific stranding is noted along the right external iliac vessel of uncertain clinical significance. 7. Normal appendix. 8. No acute bowel abnormality. 9. Moderate to severe degenerative change of the lumbar spine with an age-indeterminate compression deformity of the L1 vertebral body. D/ / 10/29/2016 07:26:06 Kamran Greco MD / yelena Interpreting Provider: Kamran Greco MD - Attending Attestation I examined this patient and my medical decision-making was reviewed with the Resident Physician. I agree with the documented findings, disposition and treatment plan as described except to the extent set forth below. Will await path for H. Pylori.. he needs to stay in the Hospital for 3 days with PPI therapy given clot on Ulcer.
[2016-10-30 14:36] LABS: Hematocrit 27.2 % (37.5-50.1); Hemoglobin 8.6 g/dL (12.9-16.9)
[2016-10-30] MEDS: *HR* Heparin 5,000 UNIT/ML VIAL SQ SCH (17:50)
[2016-10-30] MEDS ORDERED: *HR* OxyCODONE/APAP 5/325 TABLET PO PRN (18:20)
[2016-10-31] MEDS: Pantoprazole 40 MG in 0.9 % Sodium Chloride Mini Bag 100 ML IVC SCH ×5 (01:40→22:44)
[2016-10-31] MEDS: Ipratropium/Albuterol Neb 3 ML IH SCH ×3 (02:23→16:33)
[2016-10-31] MEDS: Vancomycin 1,500 MG in D5% in Water 250 ML IVPB SCH (03:25)
[2016-10-31] MEDS: *HR* Heparin 5,000 UNIT/ML VIAL SQ SCH ×2 (05:58→17:31)
[2016-10-31] MEDS: Sucralfate 1 GM TABLET PO SCH ×4 (08:01→20:16)
[2016-10-31 08:02] LABS: Calcium 9.1 mg/dL (8.6-10.8); Potassium 4.6 mEq/L (3.5-4.5)
[2016-10-31 08:19] LABS: Basophils % 0.4 %; Eosinophils # 0.1 K/mcL (0.0-0.6); Eosinophils % 2.5 %; Hematocrit 20.4 % (37.5-50.1); Hemoglobin 6.9 g/dL (12.9-16.9); Immature Granulocytes % 1.2 % (0-4); Lymphocytes # 0.7 K/mcL (0.6-4.6); Lymphocytes % 13.6 %; Mean Corpuscular HGB Conc 33.8 g/dL (31.6-35.5); Mean Corpuscular Hemoglobin 29.1 pg (28.0-33.3); Mean Corpuscular Volume 86.1 fL (83.0-100.0); Mean Platelet Volume 11.6 fL (9.4-12.4); Monocytes # 0.4 K/mcL (0.0-1.3); Red Blood Count 2.37 M/mcL (4.19-5.50); Red Cell Distribution Width 14.9 % (11.5-14.5); Segmented Neutrophils % 74.3 %
[2016-10-31 08:32] LABS: Neutrophils # 3.9 K/mcL (1.6-8.9); Platelet Count 91 K/mcL (140-400)
[2016-10-31] MEDS ORDERED: 0.9 % Sodium Chloride 1,000 ML ONE (09:05)
[2016-10-31] MEDS ORDERED: Ondansetron ODT 4 MG TAB.RAPDIS PO PRN (11:01)
[2016-10-31] MEDS ORDERED: Naloxone 0.4 MG/ML INJ IVP PRN (11:01)
[2016-10-31] MEDS ORDERED: Albuterol 2.5 MG/3 ML NEBULIZER IH PRN (11:01)
[2016-10-31] MEDS: *HR* OxyCODONE/APAP 5/325 TABLET PO PRN ×2 (13:27→20:17)
--- NOTE | 2016-10-31 15:03 | Internal Med Progress Note ---
<JethroRoney hayden - Last Filed: 10/31/16 15:17> Date of Encounter: 10/31/16 Time of Encounter: 10:00 - Assessment and plan (1) Anemia due to acute blood loss Current Visit: Yes Status: Acute Assessment and plan: Anemia secondary to acute blood loss - secondary to acute GI bleed Patient had rebounded to 8.6 hgb yesterday s/p clipping duodenal ulcer and 4 units PRBS, 2 units FFP. This morning patient's Hgb had dropped back to 6.9. 2 units PRBC ordered. repeat H/H scheduled for 4 hrs post transfusion Will check again in the morning. unclear if ulcer bleeding more or if we're just catching up on the prior bleeding. If hgb not improved after this transfusion or drops again will consult for surgical intervention. Continue to hold Xarelto (2) GI bleed Current Visit: Yes Status: Acute Assessment and plan: See anemia due to acute blood loss. Qualifiers: GI bleed type/associated pathology: melena Qualified Code(s): K92.1 - Melena (3) Cellulitis Current Visit: Yes Status: Acute Assessment and plan: Debateable Acute cellulitis of right lower leg Patient reprots leg is always like that and does not appear to be impressive obvious cellulitis on exam. IV vanc stopped. Switched to PO keflex 500mg BID. preliminary blood cultures are negative. Ultrasound Doppler - negative for DVT Qualifiers: Site of cellulitis: extremity Site of cellulitis of extremity: lower extremity Laterality: right Qualified Code(s): L03.115 - Cellulitis of right lower limb (4) Gastroenteritis Current Visit: Yes Status: Acute Assessment and plan: Initial presentation suggestive of acute viral gastroenteritis, continue IV fluids H.Pylori biopsy negative. (5) Atrial fibrillation Current Visit: No Status: Chronic Assessment and plan: Patient has Chronic rate controlled atrial fibrillation - patient is on carvedilol and on Xarelto for anticoagulation which is being held due to GI bleed. Qualifiers: Atrial fibrillation type: chronic Qualified Code(s): I48.2 - Chronic atrial fibrillation (6) FARIBA (acute kidney injury) Current Visit: Yes Status: Acute Assessment and plan: likely secondary to deydration secondary to gastroenteritis - Cr improving down to 1.52 from 1.91 yesterday. Continue IV fluids. Will check BMP in the morning to continue to monitor - Subjective Interval history: Patient had a drop in hgb from 8.6 to 6.9. Patient had 2 units of PRBCs ordered as a result and follow up. Patient reports feeling well. He denies Abdominal pain, Chest pain, SOB. Patient reports his RLE always is bigger than the LLE and is always red and swollen. Per sursing patient had one bloody bowel movement overnight. - Constitutional Vitals: Temp Pulse Resp BP Pulse Ox 97.8 F 82 13 108/60 98 10/31/16 14:23 10/31/16 14:23 10/31/16 14:23 10/31/16 14:23 10/31/16 14:23 General appearance: Present: cooperative, A&O X 2, morbidly obese, pleasant, no acute distress - Eye Eye exam: Present: PERRL - ENT ENT exam: Present: mucous membranes moist - Respiratory Respiratory exam: Present: CTAB. Absent: rales, rhonchi, wheezes - Cardiovascular Cardiovascular exam: Present: irregular rhythm, +S1, +S2 - GI/Abdominal GI/Abdominal exam: Present: normal bowel sounds, soft. Absent: tenderness - Extremities Exam Additional comments: RLE Red, swollen, with skin changes. Not significantly warmer than LLE. - Neurological Exam Neurological exam: Present: alert. Absent: speech deficit - Psychiatric Psychiatric exam: Present: normal affect, normal mood - Skin Skin exam: Present: erythema (RLE) Internal Medicine: Result - Labs CBC & Chem 7: 10/31/16 07:42 10/31/16 07:42 Labs: Short CBC 10/31/16 Range/Units 07:42 WBC 5.2 (4.3-11.1) K/mcL Hgb 6.9 L D (12.9-16.9) g/dL Hct 20.4 L (37.5-50.1) % Plt Count 91 L (140-400) K/mcL Neutrophils # 3.9 (1.6-8.9) K/mcL BMP 10/31/16 07:42 Sodium 139 Potassium 4.6 H Chloride 116 H Carbon Dioxide 19 BUN 58 H D Creatinine 1.52 H Glucose 100 H Calcium 9.1 - ABG Interpretation ABG results: PT/INR, D-dimer PT 17.2 Seconds (9.4-12.1) H 10/30/16 10:58 - VTE Reasons for not Prescribing Prophylaxis: Not indicated-Anticoagulated or INR therapeutic Consult Discharge Plan - Plan [facility]errals: [facility] [Primary Care Provider[facility] - <Owen Lora - Last Filed: 10/31/16 20:33> Date of Encounter: 10/31/16 - Assessment and plan (1) Anemia due to acute blood loss Current Visit: Yes Status: Acute (2) FARIBA (acute kidney injury) Current Visit: Yes Status: Acute (3) Cellulitis Current Visit: Yes Status: Acute Qualifiers: Site of cellulitis: extremity Site of cellulitis of extremity: lower extremity Laterality: right Qualified Code(s): L03.115 - Cellulitis of right lower limb (4) GI bleed Current Visit: Yes Status: Acute Qualifiers: GI bleed type/associated pathology: melena Qualified Code(s): K92.1 - Melena - Constitutional Vitals: Temp Pulse Resp BP Pulse Ox 97.9 F 82 14 109/54 98 10/31/16 19:11 10/31/16 16:00 10/31/16 16:34 10/31/16 16:00 10/31/16 16:34 Internal Medicine: Result - Labs CBC & Chem 7: 10/31/16 17:32 10/31/16 07:42 Labs: Short CBC 10/31/16 10/31/16 Range/Units 07:42 17:32 WBC 5.2 (4.3-11.1) K/mcL Hgb 6.9 L D 8.7 L D (12.9-16.9) g/dL Hct 20.4 L 26.7 L (37.5-50.1) % Plt Count 91 L (140-400) K/mcL Neutrophils # 3.9 (1.6-8.9) K/mcL BMP 10/31/16 07:42 Sodium 139 Potassium 4.6 H Chloride 116 H Carbon Dioxide 19 BUN 58 H D Creatinine 1.52 H Glucose 100 H Calcium 9.1 - ABG Interpretation ABG results: PT/INR, D-dimer PT 13.0 Seconds (9.4-12.1) H 10/31/16 17:32 - Attending Attestation I examined this patient and my medical decision-making was reviewed with the Resident Physician. I agree with the documented findings, disposition and treatment plan as described except to the extent set forth below.
[2016-10-31 17:39] LABS: Hematocrit 26.7 % (37.5-50.1)
[2016-10-31 17:40] LABS: Hemoglobin 8.7 g/dL (12.9-16.9)
[2016-10-31 17:47] LABS: INR 1.2
[2016-10-31] MEDS: cephALEXin 500 MG CAPSULE PO SCH (20:16)
[2016-10-31] MEDS ORDERED: 0.9 % Sodium Chloride 250 ML ONE (22:24)
[2016-11-01] MEDS: Ipratropium/Albuterol Neb 3 ML IH SCH ×4 (02:32→23:29)
[2016-11-01] MEDS: *HR* OxyCODONE/APAP 5/325 TABLET PO PRN ×3 (03:14→20:59)
[2016-11-01] MEDS: Pantoprazole 40 MG in 0.9 % Sodium Chloride Mini Bag 100 ML IVC SCH ×2 (03:15→09:09)
[2016-11-01 04:46] LABS: Hematocrit 24.6 % (37.5-50.1); Mean Corpuscular HGB Conc 32.5 g/dL (31.6-35.5); Mean Corpuscular Hemoglobin 28.9 pg (28.0-33.3); Mean Corpuscular Volume 88.8 fL (83.0-100.0); Mean Platelet Volume 10.2 fL (9.4-12.4); Platelet Count 100 K/mcL (140-400); Red Blood Count 2.77 M/mcL (4.19-5.50); Red Cell Distribution Width 14.4 % (11.5-14.5)
[2016-11-01 05:05] LABS: BUN/Creatinine Ratio 28 (6-26); Calcium 9.5 mg/dL (8.6-10.8); Carbon Dioxide 21 mEq/L (19-29); Chloride 114 mEq/L (98-109); Glucose 94 mg/dL (70-99); Osmolality,Calculated 296 (280-300); Potassium 4.3 mEq/L (3.5-4.5); Sodium 139 mEq/L (136-145); eGFR For African Americans > 60 (> 60); eGFR For Non-African Americans 57 (> 60)
[2016-11-01 05:07] LABS: Blood Urea Nitrogen 35 mg/dL (8-26)
[2016-11-01] MEDS: Sucralfate 1 GM TABLET PO SCH ×4 (05:54→20:58)
[2016-11-01] MEDS: *HR* Heparin 5,000 UNIT/ML VIAL SQ SCH ×2 (05:54→17:01)
[2016-11-01] MEDS ORDERED: Pantoprazole 40 MG VIAL IVP SCH (09:00)
[2016-11-01] MEDS ORDERED: Aminoglycoside Consult 1 EACH MC ONE (09:04)
[2016-11-01] MEDS: cephALEXin 500 MG CAPSULE PO SCH ×2 (09:08→20:58)
[2016-11-01] MEDS: Pantoprazole 40 MG VIAL IVP SCH ×2 (09:10→20:59)
--- NOTE | 2016-11-01 14:55 | Discharge Summary ---
<Roney Auguste - Last Filed: 11/01/16 16:59> Date of Encounter: 11/01/16 Time of Encounter: 14:45 - Discharge Diagnosis (1) Anemia due to acute blood loss Priority: Primary Status: Acute (2) GI bleed Priority: Primary Status: Acute Qualifiers: GI bleed type/associated pathology: melena Qualified Code(s): K92.1 - Melena (3) Cellulitis Priority: Secondary Status: Acute Qualifiers: Site of cellulitis: extremity Site of cellulitis of extremity: lower extremity Laterality: right Qualified Code(s): L03.115 - Cellulitis of right lower limb (4) Gastroenteritis Priority: Secondary Status: Acute (5) Atrial fibrillation Priority: Secondary Status: Chronic Qualifiers: Atrial fibrillation type: chronic Qualified Code(s): I48.2 - Chronic atrial fibrillation (6) FARIBA (acute kidney injury) Priority: Secondary Status: Acute Comments: resolved. - Discharge Medications Prescriptions: cephALEXin [Keflex] 500 mg PO BID #6 Ferrous Sulfate 325 mg PO BIDWM #30 tab Sucralfate [Carafate] 1 gm PO QIDAC #30 tab Home Medications: Carvedilol [Coreg] 25 mg PO BID 03/14/16 [History] Furosemide [Lasix] 10 mg PO DAILY 03/14/16 [History] Lisinopril [Zestril] 10 mg PO DAILY 03/14/16 [History] Omeprazole [PriLOSEC] 20 mg PO BID 03/14/16 [History] Sennosides/Docusate Sodium [Senna-Docusate Sodium Tablet] 2 tab PO BID 03/14/16 [History] Simvastatin [Zocor] 40 mg PO HS 03/14/16 [History] Cholecalciferol (Vitamin D3) [Vitamin D3] 2,000 unit PO DAILY 10/29/16 [History] Hydrophilic Cream [Basle] 1 appl TP DAILY 10/29/16 [History] Ketoconazole 2% CRM [Nizoral Cream] 1 appl TP BID 10/29/16 [History] Ferrous Sulfate 325 mg PO BIDWM #30 tab 11/01/16 [Rx] Ipratropium/Albuterol Neb [Duoneb] 3 ml IH TIDR inh 11/01/16 [Rx] Sucralfate [Carafate] 1 gm PO QIDAC #30 tab 11/01/16 [Rx] cephALEXin [Keflex] 500 mg PO BID #6 11/01/16 [Rx] Allergies/Adverse Reactions: Allergies No Known Allergies Allergy (Verified 03/13/16 23:32) Procedures/tests Complete & Pending: CT Abd Pelvis: "IMPRESSION: 1. Study is limited due to lack of IV contrast and motion artifact. 2. No definite acute abnormality of the abdomen or pelvis. 3. Mild nonspecific perinephric stranding. 4. Nonobstructing left renal calculi. 5. Diffuse bladder wall thickening with a 2.2 cm diverticulum projecting off the anterior wall. Findings could represent sequela of chronic obstruction from BPH. Correlate for underlying cystitis. 6. Mild area of nonspecific stranding is noted along the right external iliac vessel of uncertain clinical significance. 7. Normal appendix. 8. No acute bowel abnormality. 9. Moderate to severe degenerative change of the lumbar spine with an age-indeterminate compression deformity of the L1 vertebral body." Endoscopy: "Impression: LA Grade C esophagitis Non bleeding gastric ulcer/ Biopsied. One oozing duodenal ulcer with adherent clot. Injected. Clips were placed." Date of admission: 10/29/16 08:02 [facility] Consults: 10/29/16 08:49 Consult to Physical Therapy [CONS] Routine Comment: Evaluate, develop and implement POC Reason for Consult: discharge planning OT [Consult to Occupational Therapy] [CONS] Routine Comment: Evaluate, develop and implement POC Reason for Consult: discharge planning 10/29/16 08:59 Consult to Carpet Cutter [CONS] Routine Reason for SW Consult: potential discharge needs 11/01/16 10:11 OT [Consult to Occupational Therapy] [CONS] Routine Comment: Evaluate, develop and implement POC Reason for Consult: weakness PT [Consult to Physical Therapy] [CONS] Routine Comment: Evaluate, develop and implement POC Reason for Consult: weakness 11/01/16 10:12 Consult to Carpet Cutter [CONS] Routine Reason for SW Consult: discharge planning Discharging clinician: Roney Auguste Anticipated date of discharge: 11/01/16 - Patient Status Disposition: Home, Self-Care Condition: Good Functional capacity at discharge: wheelchair bound Overall status at discharge: patient is progressing back to baseline - Discharge Instructions [facility] With: [facility] [Primary Care Provider[facility] - Additional Instructions: Please Follow Up with your primary care physician within one week. Please take your medicines as we have prescribed. Please stop your Xarelto, Tramadol, naproxen until you discuss with your primary care doctor. Please take your Keflex for the next 3 days as instructed. Please take the Carafate as directed. Please take the Iron supplement (Ferrous Sulfate) as directed. Please return to the Hospital if you have new or worsening symptoms. - Diet and Activity Activity: resume usual activities as tolerated Diet: advance to your usual diet Interval History: Patient reports feeling fine. Patient has had no bloody bowel movements overnight and his hgb level has remained steady. Patient is eager to go home. Hospital course: Mr. Gore is a 75 year old male [facility] patient with hx of AFib on xarelto, HTN who presents with 1)acute viral gastroenteritis, 2)FARIBA and 3)worsening swelling of LLE found to have overlying cellulitis. He reports 1-2 day hx of diarrhea - dark (FOBT negative) associated with dry heaving and non-bloody emesis associated with decreased PO intake. Patient developed acute blood loss anemia secondary to GI Bleed while in the hospital. Patient had drop in hgb of 4 points. Patient was given 4 units of PRBC and 2 units of FFP. Patient had endoscopy by Dr. Lora this morning that showed a esophagitis, a stomach ulcer and a bleeding duodenal ulcer which Dr. Lora placed two clips in. The next day his hgb was found to have dropped again. Patient was given 2 more units of PRBCs and 1 more unit of FFP. Patient has had stable hgb since and no more bloody bowel movements. Patient was deemed safe for discharge home on 11/01/16. - Time Spent with Patient Total time spent providing and/or coordinating discharge services: - Constitutional Vitals: Temp Pulse Resp BP Pulse Ox 98.7 F 84 18 148/72 100 11/01/16 10:58 11/01/16 10:58 11/01/16 10:58 11/01/16 10:58 11/01/16 10:58 General appearance: Present: cooperative, A&O X 2, morbidly obese, pleasant, no acute distress - Eye Eye exam: Present: PERRL, sclera anicteric - ENT ENT exam: Present: mucous membranes moist - Respiratory Respiratory exam: Present: CTAB - Cardiovascular Cardiovascular exam: Present: irregular rhythm, +S1, +S2 - GI/Abdominal GI/Abdominal exam: Present: normal bowel sounds, soft. Absent: tenderness - Extremities Exam Additional comments: RLE has erythema and skin changes. It is also swollen compared to the LLE. - Neurological Exam Neurological exam: Present: alert, oriented X3. Absent: speech deficit - Psychiatric Psychiatric exam: Present: normal affect, normal mood - Skin Skin exam: Present: erythema (RLE) - VTE Reasons for not Prescribing Prophylaxis: Not indicated-Anticoagulated or INR therapeutic <Owen Lora - Last Filed: 11/01/16 18:00> Date of Encounter: 11/01/16 - Discharge Diagnosis (1) Anemia due to acute blood loss Status: Acute (2) FARIBA (acute kidney injury) Status: Acute (3) Cellulitis Status: Acute Qualifiers: Site of cellulitis: extremity Site of cellulitis of extremity: lower extremity Laterality: right Qualified Code(s): L03.115 - Cellulitis of right lower limb (4) GI bleed Status: Acute Qualifiers: GI bleed type/associated pathology: melena Qualified Code(s): K92.1 - Melena Date of admission: 10/29/16 08:02 [facility] physician: [facility] Consults: 10/29/16 08:49 Consult to Physical Therapy [CONS] Routine Comment: Evaluate, develop and implement POC Reason for Consult: discharge planning OT [Consult to Occupational Therapy] [CONS] Routine Comment: Evaluate, develop and implement POC Reason for Consult: discharge planning 10/29/16 08:59 Consult to Carpet Cutter [CONS] Routine Reason for SW Consult: potential discharge needs 11/01/16 10:11 OT [Consult to Occupational Therapy] [CONS] Routine Comment: Evaluate, develop and implement POC Reason for Consult: weakness PT [Consult to Physical Therapy] [CONS] Routine Comment: Evaluate, develop and implement POC Reason for Consult: weakness 11/01/16 10:12 Consult to Carpet Cutter [CONS] Routine Reason for SW Consult: discharge planning Hospital course: Mr. Gore is a 75 year old male - Time Spent with Patient Total time spent providing and/or coordinating discharge services: - Constitutional Vitals: Temp Pulse Resp BP Pulse Ox 98.3 F 89 24 135/79 95 11/01/16 15:38 11/01/16 15:38 11/01/16 16:37 11/01/16 15:38 11/01/16 16:37 - Attending Attestation I examined this patient and my medical decision-making was reviewed with the Resident Physician. I agree with the documented findings, disposition and treatment plan as described except to the extent set forth below.
--- NOTE | 2016-11-01 17:50 | Physician Discharge Referral ---
ExtendedCare Referral Info Provider in Charge after Transfer: PCP Institutional Level of Care: Skilled - Diagnosis (1) Anemia due to acute blood loss Priority: Primary Status: Acute (2) GI bleed Priority: Secondary Status: Acute (3) Cellulitis Priority: Secondary Status: Acute (4) Gastroenteritis Priority: Secondary Status: Acute (5) Atrial fibrillation Priority: Secondary Status: Chronic (6) FARIBA (acute kidney injury) Priority: Secondary Status: Acute Prognosis: Good Aware of Diagnosis: Patient, Family Aware of Prognosis: Patient, Family - Transfer Medications Prescriptions: cephALEXin [Keflex] 500 mg PO BID #6 Ferrous Sulfate 325 mg PO BIDWM #30 tab Sucralfate [Carafate] 1 gm PO QIDAC #30 tab Home Medications: Carvedilol [Coreg] 25 mg PO BID 03/14/16 [History] Furosemide [Lasix] 10 mg PO DAILY 03/14/16 [History] Lisinopril [Zestril] 10 mg PO DAILY 03/14/16 [History] Omeprazole [PriLOSEC] 20 mg PO BID 03/14/16 [History] Sennosides/Docusate Sodium [Senna-Docusate Sodium Tablet] 2 tab PO BID 03/14/16 [History] Simvastatin [Zocor] 40 mg PO HS 03/14/16 [History] Cholecalciferol (Vitamin D3) [Vitamin D3] 2,000 unit PO DAILY 10/29/16 [History] Hydrophilic Cream [Basle] 1 appl TP DAILY 10/29/16 [History] Ketoconazole 2% CRM [Nizoral Cream] 1 appl TP BID 10/29/16 [History] Ferrous Sulfate 325 mg PO BIDWM #30 tab 11/01/16 [Rx] Ipratropium/Albuterol Neb [Duoneb] 3 ml IH TIDR inh 11/01/16 [Rx] Sucralfate [Carafate] 1 gm PO QIDAC #30 tab 11/01/16 [Rx] cephALEXin [Keflex] 500 mg PO BID #6 11/01/16 [Rx] Allergies/Adverse Reactions: Allergies No Known Allergies Allergy (Verified 03/13/16 23:32) - Respiratory Orders Smoking Cessation: Smoking cessation has been advised. For more information, call the [place] Tobacco Quit Line at 6-093-FXPZ-NOW. - Ancillary Orders May use pressure relief devices daily prn - Advance Directives Code Status: Full Code - Rehabiliation Orders Rehab Potential: Good Rehab Orders: ROM Exercises, Evaluation for Physical Therapy, Evaluation for Occupational Therapy - Treatments Skin tear care topically daily PRN per policy - Diet Orders Cardiac CERTIFICATION: I certify that the transfer of the above named patient to an Extended Care Facility is necessary for the continuing treatment of the diagnosis listed. The above information is true and accurate reflection of patient's current condition. Confidential - Redisclosure prohibited without a patient's written consent.
[2016-11-02] MEDS: *HR* Heparin 5,000 UNIT/ML VIAL SQ SCH ×2 (06:05→17:38)
[2016-11-02] MEDS: *HR* OxyCODONE/APAP 5/325 TABLET PO PRN ×3 (06:05→17:38)
[2016-11-02] MEDS: cephALEXin 500 MG CAPSULE PO SCH ×2 (08:04→21:39)
[2016-11-02] MEDS: Sucralfate 1 GM TABLET PO SCH ×3 (08:05→16:32)
[2016-11-02] MEDS: Pantoprazole 40 MG VIAL IVP SCH ×2 (08:05→21:39)
[2016-11-02] MEDS: Ipratropium/Albuterol Neb 3 ML IH SCH ×2 (09:24→15:31)
--- NOTE | 2016-11-02 10:55 | Internal Med Progress Note ---
Date of Encounter: 11/02/16 Time of Encounter: 10:52 - Assessment and plan (1) GI bleed Current Visit: Yes Status: Acute Assessment and plan: s/p EGD - with esophagitis, Gatsric ulcer and bleeding duodenal ulcer s/p Clipps Had noraml BM this morning as per pt cont close monitoring of Hb Qualifiers: GI bleed type/associated pathology: melena Qualified Code(s): K92.1 - Melena (2) Duodenal ulcer with hemorrhage Current Visit: Yes Status: Acute (3) Anemia due to acute blood loss Current Visit: Yes Status: Acute Assessment and plan: Anemia secondary to acute blood loss - secondary to acute GI bleed s/p clipping duodenal ulcer and 6 units PRBS, 2 units FFP. cont close monitoring of Hb Continue to hold Xarelto (4) Atrial fibrillation Current Visit: No Status: Chronic Assessment and plan: Patient has Chronic rate controlled atrial fibrillation - patient is on carvedilol and on Xarelto for anticoagulation which is being held due to GI bleed. Qualifiers: Atrial fibrillation type: chronic Qualified Code(s): I48.2 - Chronic atrial fibrillation (5) FARIBA (acute kidney injury) Current Visit: Yes Status: Acute Assessment and plan: likely secondary to deydration secondary to gastroenteritis - Cr improved Will check BMP in the morning to continue to monitor (6) Cellulitis Current Visit: Yes Status: Acute Assessment and plan: Looks like chronic venous stasis however due to erythema finish complete abx course : PO keflex 500mg BID. preliminary blood cultures are negative. Ultrasound Doppler - negative for DVT Requested the nurse to apply JUAN wraps on his Rt leg Qualifiers: Site of cellulitis: extremity Site of cellulitis of extremity: lower extremity Laterality: right Qualified Code(s): L03.115 - Cellulitis of right lower limb - Subjective Interval history: This is a 75 y/o M with known h/o A fib on xarelto for anticoag, ho CVA with Rt residual paralysis admitted her acute GI bleed with severe anemia. Pt received 4 U PRBC and did go for EGD which showed a esophagitis, a stomach ulcer and a bleeding duodenal ulcer which Dr. Lora placed two clips in. Now pt is waiting here for placement. Denied any CP / SOB. No new complaints. - Constitutional Vitals: Temp Pulse Resp BP Pulse Ox 98.3 F 82 18 133/73 99 11/02/16 07:07 11/02/16 07:07 11/02/16 09:25 11/02/16 07:07 11/02/16 09:25 General appearance: Present: cooperative, A&O X 3, morbidly obese, pleasant, no acute distress - Head Head exam: Present: atraumatic, normal inspection - Respiratory Respiratory exam: Present: decreased breath sounds, wheezes. Absent: rales, respiratory distress, rhonchi - Cardiovascular Cardiovascular exam: Present: irregular rhythm, +S1, +S2, +S3 - GI/Abdominal GI/Abdominal exam: Present: distended, normal bowel sounds, soft. Absent: tenderness - Extremities Exam Extremities exam: Absent: calf tenderness, tenderness Additional comments: chronically swollen Rt leg Mild erythema noticed over Rt leg No tenderness - Neurological Exam Additional comments: chronic Rt residual paralysis - Psychiatric Psychiatric exam: Present: normal affect, normal mood Internal Medicine: Result - Labs CBC & Chem 7: 11/01/16 04:39 11/01/16 04:39 - ABG Interpretation ABG results: PT/INR, D-dimer PT 13.0 Seconds (9.4-12.1) H 10/31/16 17:32 - VTE Reasons for not Prescribing Prophylaxis: Not indicated-Anticoagulated or INR therapeutic Consult Discharge Plan - Plan Additional Instructions: Please Follow Up with your primary care physician within one week. Please take your medicines as we have prescribed. Please stop your Xarelto, Tramadol, naproxen until you discuss with your primary care doctor. Please take your Keflex for the next 3 days as instructed. Please take the Carafate as directed. Please take the Iron supplement (Ferrous Sulfate) as directed. Please return to the Hospital if you have new or worsening symptoms. [facility]errals: [facility] [Primary Care Provider] - Prescriptions: cephALEXin [Keflex] 500 mg PO BID #6 Ferrous Sulfate 325 mg PO BIDWM #30 tab Sucralfate [Carafate] 1 gm PO QIDAC #30 tab
[2016-11-02 11:11] LABS: Hematocrit 28.8 % (37.5-50.1); Hemoglobin 8.6 g/dL (12.9-16.9)
[2016-11-02 12:03] LABS: Eosinophils # 0.1 K/mcL (0.0-0.6); Hematocrit 25.4 % (37.5-50.1); Hemoglobin 8.4 g/dL (12.9-16.9); Immature Granulocytes % 2.6 % (0-4); Lymphocytes # 0.6 K/mcL (0.6-4.6); Mean Corpuscular HGB Conc 33.1 g/dL (31.6-35.5); Mean Corpuscular Hemoglobin 29.4 pg (28.0-33.3); Mean Platelet Volume 10.7 fL (9.4-12.4); Monocytes # 0.4 K/mcL (0.0-1.3); Monocytes % 8.1 %; Neutrophils # 3.4 K/mcL (1.6-8.9); Platelet Count 110 K/mcL (140-400); Red Blood Count 2.86 M/mcL (4.19-5.50); Red Cell Distribution Width 14.3 % (11.5-14.5); Segmented Neutrophils % 73.3 %
[2016-11-02 12:04] LABS: Mean Corpuscular Volume 88.8 fL (83.0-100.0)
[2016-11-03] MEDS: Ipratropium/Albuterol Neb 3 ML IH SCH ×3 (00:06→15:51)
[2016-11-03] MEDS: Sucralfate 1 GM TABLET PO SCH ×4 (03:41→16:42)
[2016-11-03] MEDS: *HR* OxyCODONE/APAP 5/325 TABLET PO PRN ×3 (03:42→20:03)
[2016-11-03] MEDS: *HR* Heparin 5,000 UNIT/ML VIAL SQ SCH ×2 (06:45→16:42)
[2016-11-03 07:03] LABS: BUN/Creatinine Ratio 13 (6-26); Calcium 9.6 mg/dL (8.6-10.8); Carbon Dioxide 22 mEq/L (19-29); Chloride 112 mEq/L (98-109); Glucose 105 mg/dL (70-99); Osmolality,Calculated 291 (280-300); Potassium 4.1 mEq/L (3.5-4.5); Sodium 140 mEq/L (136-145); eGFR For African Americans > 60 (> 60); eGFR For Non-African Americans > 60 (> 60)
[2016-11-03 07:04] LABS: Blood Urea Nitrogen 14 mg/dL (8-26)
[2016-11-03 07:15] LABS: Basophils % 0.3 %; Eosinophils # 0.1 K/mcL (0.0-0.6); Eosinophils % 2.1 %; Hemoglobin 8.2 g/dL (12.9-16.9); Lymphocytes # 0.7 K/mcL (0.6-4.6); Lymphocytes % 12.6 %; Mean Corpuscular HGB Conc 31.5 g/dL (31.6-35.5); Mean Corpuscular Hemoglobin 28.6 pg (28.0-33.3); Mean Corpuscular Volume 90.6 fL (83.0-100.0); Mean Platelet Volume 10.2 fL (9.4-12.4); Monocytes # 0.4 K/mcL (0.0-1.3); Monocytes % 7.3 %; Neutrophils # 4.2 K/mcL (1.6-8.9); Platelet Count 136 K/mcL (140-400); Red Blood Count 2.87 M/mcL (4.19-5.50); Red Cell Distribution Width 14.6 % (11.5-14.5); Segmented Neutrophils % 73.7 %
[2016-11-03] MEDS: Pantoprazole 40 MG VIAL IVP SCH ×2 (07:33→20:03)
[2016-11-03] MEDS: cephALEXin 500 MG CAPSULE PO SCH ×2 (07:33→20:03)
--- NOTE | 2016-11-03 10:14 | Internal Med Progress Note ---
Date of Encounter: 11/03/16 Time of Encounter: 10:11 - Assessment and plan (1) GI bleed Current Visit: Yes Status: Acute Assessment and plan: s/p EGD - with esophagitis, Gatsric ulcer and bleeding duodenal ulcer s/p Clipps Improved melena Received 6 PRBC and 3 U FFP So far stable Hb @ 8.2 Qualifiers: GI bleed type/associated pathology: melena Qualified Code(s): K92.1 - Melena (2) Duodenal ulcer with hemorrhage Current Visit: Yes Status: Acute (3) Anemia due to acute blood loss Current Visit: Yes Status: Acute Assessment and plan: Anemia secondary to acute blood loss - secondary to acute GI bleed s/p clipping duodenal ulcer received total 6 units PRBS, 3 units FFP. cont close monitoring of Hb Continue to hold Xarelto (4) Atrial fibrillation Current Visit: No Status: Chronic Assessment and plan: Patient has Chronic rate controlled atrial fibrillation - patient is on carvedilol and on Xarelto for anticoagulation which is being held due to GI bleed. Qualifiers: Atrial fibrillation type: chronic Qualified Code(s): I48.2 - Chronic atrial fibrillation (5) FARIBA (acute kidney injury) Current Visit: Yes Status: Acute Assessment and plan: likely secondary to dehydration secondary to gastroenteritis - Cr improved Will check BMP in the morning to continue to monitor (6) Cellulitis Current Visit: Yes Status: Acute Assessment and plan: Improving with JUAN wraps cont local care..may get benefit with out pt wound care f/u Looks like chronic venous stasis however due to erythema finish complete abx course : PO keflex 500mg BID # 5/7 preliminary blood cultures are negative. Ultrasound Doppler - negative for DVT Qualifiers: Site of cellulitis: extremity Site of cellulitis of extremity: lower extremity Laterality: right Qualified Code(s): L03.115 - Cellulitis of right lower limb - Subjective Interval history: This is a 75 y/o M with known h/o A fib on xarelto for anticoag, ho CVA with Rt residual paralysis admitted her acute GI bleed with severe anemia. Pt received 4 U PRBC and did go for EGD which showed a esophagitis, a stomach ulcer and a bleeding duodenal ulcer which Dr. Lora placed two clips in. Now pt is waiting here for placement. Denied any CP / SOB. No more dark colored stools. Pt stated he had one loose BM last night. - Constitutional Vitals: Temp Pulse Resp BP Pulse Ox 98.4 F 91 20 166/93 98 11/03/16 08:16 11/03/16 08:16 11/03/16 08:16 11/03/16 08:16 11/03/16 08:16 General appearance: Present: cooperative, A&O X 3, morbidly obese, pleasant, no acute distress - Head Head exam: Present: atraumatic, normal inspection - Respiratory Respiratory exam: Present: decreased breath sounds, wheezes. Absent: rales, respiratory distress, rhonchi, stridor - Cardiovascular Cardiovascular exam: Present: irregular rhythm, +S1, +S2. Absent: diastolic murmur, gallop, rubs, systolic murmur - GI/Abdominal GI/Abdominal exam: Present: distended, normal bowel sounds, soft. Absent: rebound, rigid, tenderness - Extremities Exam Extremities exam: Present: pedal edema (improving edema and erythema in Rt leg) . Absent: calf tenderness, tenderness - Psychiatric Psychiatric exam: Present: normal affect, normal mood Internal Medicine: Result - Labs CBC & Chem 7: 11/03/16 06:25 11/03/16 06:25 Labs: Short CBC 11/02/16 11/02/16 11/03/16 Range/Units 10:31 11:51 06:25 WBC TNP 4.7 5.7 Hgb 8.6 L 8.4 L 8.2 L (12.9-16.9) g/dL Hct 28.8 L 25.4 L 26.0 L (37.5-50.1) % Plt Count TNP 110 L 136 L Neutrophils # 3.4 4.2 (1.6-8.9) K/mcL BMP 11/03/16 06:25 Sodium 140 Potassium 4.1 Chloride 112 H Carbon Dioxide 22 BUN 14 D Creatinine 1.04 Glucose 105 H Calcium 9.6 - ABG Interpretation ABG results: PT/INR, D-dimer PT 13.0 Seconds (9.4-12.1) H 10/31/16 17:32 - VTE Reasons for not Prescribing Prophylaxis: Not indicated-Anticoagulated or INR therapeutic Consult Discharge Plan - Plan Additional Instructions: Please Follow Up with your primary care physician within one week. Please take your medicines as we have prescribed. Please stop your Xarelto, Tramadol, naproxen until you discuss with your primary care doctor. Please take your Keflex for the next 3 days as instructed. Please take the Carafate as directed. Please take the Iron supplement (Ferrous Sulfate) as directed. Please return to the Hospital if you have new or worsening symptoms. Referrals: [facility] [Primary Care Provider] - ([facility] will [facility] with [facility]) Prescriptions: cephALEXin [Keflex] 500 mg PO BID #6 Ferrous Sulfate 325 mg PO BIDWM #30 tab Sucralfate [Carafate] 1 gm PO QIDAC #30 tab
[2016-11-04] MEDS: Ipratropium/Albuterol Neb 3 ML IH SCH ×3 (00:15→17:22)
[2016-11-04] MEDS: *HR* OxyCODONE/APAP 5/325 TABLET PO PRN ×3 (04:00→16:49)
[2016-11-04 04:16] LABS: Hematocrit 26.1 % (37.5-50.1); Hemoglobin 8.3 g/dL (12.9-16.9)
[2016-11-04] MEDS: Sucralfate 1 GM TABLET PO SCH ×5 (04:18→21:25)
[2016-11-04] MEDS: *HR* Heparin 5,000 UNIT/ML VIAL SQ SCH ×2 (06:08→16:50)
[2016-11-04] MEDS: cephALEXin 500 MG CAPSULE PO SCH ×2 (08:41→21:25)
[2016-11-04] MEDS: Pantoprazole 40 MG VIAL IVP SCH ×2 (08:41→21:25)
--- NOTE | 2016-11-04 18:07 | Internal Med Progress Note ---
Date of Encounter: 11/04/16 Time of Encounter: 18:05 - Assessment and plan (1) GI bleed Current Visit: Yes Status: Acute Assessment and plan: s/p EGD - with esophagitis, Gatsric ulcer and bleeding duodenal ulcer s/p Clipps Improved melena Received 6 PRBC and 3 U FFP So far stable Hb @ 8.3 Qualifiers: GI bleed type/associated pathology: melena Qualified Code(s): K92.1 - Melena (2) Duodenal ulcer with hemorrhage Current Visit: Yes Status: Acute (3) Anemia due to acute blood loss Current Visit: Yes Status: Acute Assessment and plan: Anemia secondary to acute blood loss - secondary to acute GI bleed s/p clipping duodenal ulcer received total 6 units PRBS, 3 units FFP. cont close monitoring of Hb Continue to hold Xarelto (4) Atrial fibrillation Current Visit: No Status: Chronic Assessment and plan: Patient has Chronic rate controlled atrial fibrillation - patient is on carvedilol and on Xarelto for anticoagulation which is being held due to GI bleed. Qualifiers: Atrial fibrillation type: chronic Qualified Code(s): I48.2 - Chronic atrial fibrillation (5) FARIBA (acute kidney injury) Current Visit: Yes Status: Acute Assessment and plan: likely secondary to dehydration secondary to gastroenteritis - Cr improved (6) Cellulitis Current Visit: Yes Status: Acute Assessment and plan: Improving with JUAN wraps cont local care..may get benefit with out pt wound care f/u Looks like chronic venous stasis however due to erythema finish complete abx course : PO keflex 500mg BID # 6/7 preliminary blood cultures are negative. Ultrasound Doppler - negative for DVT Qualifiers: Site of cellulitis: extremity Site of cellulitis of extremity: lower extremity Laterality: right Qualified Code(s): L03.115 - Cellulitis of right lower limb - Subjective Interval history: This is a 75 y/o M with known h/o A fib on xarelto for anticoag, ho CVA with Rt residual paralysis admitted her acute GI bleed with severe anemia. Pt received 4 U PRBC and did go for EGD which showed a esophagitis, a stomach ulcer and a bleeding duodenal ulcer which Dr. Lora placed two clips in. Now pt is waiting here for placement. Denied any CP / SOB. No more dark colored stools. No new complaints. - Constitutional Vitals: Temp Pulse Resp BP Pulse Ox 98.2 F 82 16 136/63 97 11/04/16 16:33 11/04/16 16:33 11/04/16 17:22 11/04/16 16:33 11/04/16 17:22 General appearance: Present: cooperative, A&O X 3, morbidly obese, pleasant, no acute distress - Head Head exam: Present: atraumatic, normal inspection - Respiratory Respiratory exam: Present: decreased breath sounds, wheezes. Absent: rales, respiratory distress, rhonchi, tachypnea - Cardiovascular Cardiovascular exam: Present: irregular rhythm, +S1, +S2. Absent: systolic murmur - GI/Abdominal GI/Abdominal exam: Present: normal bowel sounds, soft. Absent: rebound, rigid, tenderness - Extremities Exam Extremities exam: Present: pedal edema (improving) - Neurological Exam Additional comments: chronic Rt residual paresis - Psychiatric Psychiatric exam: Present: normal affect, normal mood Internal Medicine: Result - Labs CBC & Chem 7: 11/04/16 03:28 11/03/16 06:25 Labs: Short CBC 11/04/16 Range/Units 03:28 Hgb 8.3 L (12.9-16.9) g/dL Hct 26.1 L (37.5-50.1) % - ABG Interpretation ABG results: PT/INR, D-dimer PT 13.0 Seconds (9.4-12.1) H 10/31/16 17:32 - VTE Reasons for not Prescribing Prophylaxis: Not indicated-Anticoagulated or INR therapeutic Consult Discharge Plan - Plan Additional Instructions: Please Follow Up with your primary care physician within one week. Please take your medicines as we have prescribed. Please stop your Xarelto, Tramadol, naproxen until you discuss with your primary care doctor. Please take your Keflex for the next 3 days as instructed. Please take the Carafate as directed. Please take the Iron supplement (Ferrous Sulfate) as directed. Please return to the Hospital if you have new or worsening symptoms. Referrals: [facility] [Primary Care Provider] - ([facility] will follow [facility] with [facility]) Prescriptions: cephALEXin [Keflex] 500 mg PO BID #6 Ferrous Sulfate 325 mg PO BIDWM #30 tab Sucralfate [Carafate] 1 gm PO QIDAC #30 tab
[2016-11-05] MEDS: Ipratropium/Albuterol Neb 3 ML IH SCH ×2 (00:16→08:28)
[2016-11-05] MEDS: *HR* OxyCODONE/APAP 5/325 TABLET PO PRN ×2 (04:44→14:35)
[2016-11-05] MEDS: Sucralfate 1 GM TABLET PO SCH ×2 (06:33→14:32)
[2016-11-05] MEDS: *HR* Heparin 5,000 UNIT/ML VIAL SQ SCH (06:35)
[2016-11-05] MEDS: cephALEXin 500 MG CAPSULE PO SCH (08:11)
[2016-11-05] MEDS: Pantoprazole 40 MG VIAL IVP SCH (08:11)
[2016-11-05 11:39] VITALS: BP 143/80
--- NOTE | 2016-11-05 12:49 | Discharge Summary ---
Date of Encounter: 11/05/16 Time of Encounter: 12:46 - Discharge Diagnosis (1) GI bleed Priority: Primary Status: Acute Qualifiers: GI bleed type/associated pathology: melena Qualified Code(s): K92.1 - Melena (2) Duodenal ulcer with hemorrhage Priority: Primary Status: Acute (3) Anemia due to acute blood loss Priority: Primary Status: Acute (4) Atrial fibrillation Priority: Secondary Status: Chronic Qualifiers: Atrial fibrillation type: chronic Qualified Code(s): I48.2 - Chronic atrial fibrillation (5) FARIBA (acute kidney injury) Priority: Secondary Status: Acute (6) Cellulitis Priority: Secondary Status: Acute Qualifiers: Site of cellulitis: extremity Site of cellulitis of extremity: lower extremity Laterality: right Qualified Code(s): L03.115 - Cellulitis of right lower limb - Discharge Medications Prescriptions: cephALEXin [Keflex] 500 mg PO BID #6 Ferrous Sulfate 325 mg PO BIDWM #30 tab Sucralfate [Carafate] 1 gm PO QIDAC #30 tab Home Medications: Carvedilol [Coreg] 25 mg PO BID 03/14/16 [History] Furosemide [Lasix] 10 mg PO DAILY 03/14/16 [History] Lisinopril [Zestril] 10 mg PO DAILY 03/14/16 [History] Omeprazole [PriLOSEC] 20 mg PO BID 03/14/16 [History] Sennosides/Docusate Sodium [Senna-Docusate Sodium Tablet] 2 tab PO BID 03/14/16 [History] Simvastatin [Zocor] 40 mg PO HS 03/14/16 [History] Cholecalciferol (Vitamin D3) [Vitamin D3] 2,000 unit PO DAILY 10/29/16 [History] Hydrophilic Cream [Basle] 1 appl TP DAILY 10/29/16 [History] Ketoconazole 2% CRM [Nizoral Cream] 1 appl TP BID 10/29/16 [History] Ferrous Sulfate 325 mg PO BIDWM #30 tab 11/01/16 [Rx] Ipratropium/Albuterol Neb [Duoneb] 3 ml IH TIDR inh 11/01/16 [Rx] Sucralfate [Carafate] 1 gm PO QIDAC #120 tablet 11/05/16 [Rx] Allergies/Adverse Reactions: Allergies No Known Allergies Allergy (Verified 03/13/16 23:32) Date of admission: 10/29/16 08:02 [facility] Consults: 10/29/16 08:49 Consult to Physical Therapy [CONS] Routine Comment: Evaluate, develop and implement POC Reason for Consult: discharge planning OT [Consult to Occupational Therapy] [CONS] Routine Comment: Evaluate, develop and implement POC Reason for Consult: discharge planning 10/29/16 08:59 Consult to Machine Candle [employer] [CONS] Routine Reason for SW Consult: potential discharge needs 11/01/16 10:11 OT [Consult to Occupational Therapy] [CONS] Routine Comment: Evaluate, develop and implement POC Reason for Consult: weakness PT [Consult to Physical Therapy] [CONS] Routine Comment: Evaluate, develop and implement POC Reason for Consult: weakness 11/01/16 10:12 Consult to Machine Candle Molder [CONS] Routine Reason for SW Consult: discharge planning - Patient Status Disposition: Home, Self-Care Condition: Good - Discharge Instructions Instructions: Gastroenteritis (DC), Anemia (GEN) Follow [facility] With: [facility]Primary Care Provider[facility] - 11/12/16 1:45 pm ([facility] will [facility] with [facility]) Additional Instructions: Please Follow Up with your primary care physician within one week. Please take your medicines as we have prescribed. Please stop your Xarelto, naproxen until you discuss with your primary care doctor. Please take the Carafate as directed. Please take the Iron supplement (Ferrous Sulfate) as directed. Please return to the Hospital if you have new or worsening symptoms. - Diet and Activity Activity: increase activity as tolerated Diet: low salt diet Hospital course: Mr. Gore is a 75 year old male [facility] patient with hx of AFib on xarelto, HTN who presents with 1)acute viral gastroenteritis, 2)FARIBA and 3)worsening swelling of LLE found to have overlying cellulitis. He reports 1-2 day hx of diarrhea - dark (FOBT negative) associated with dry heaving and non-bloody emesis associated with decreased PO intake. Patient developed acute blood loss anemia secondary to GI Bleed while in the hospital. Patient had drop in hgb of 4 points. Patient was given 4 units of PRBC and 2 units of FFP. Patient had endoscopy by Dr. Lora this morning that showed a esophagitis, a stomach ulcer and a bleeding duodenal ulcer which Dr. Lora placed two clips in. The next day his hgb was found to have dropped again. Patient was given 2 more units of PRBCs and 1 more unit of FFP. Patient has had stable hgb since and no more bloody bowel movements. He was evaluated by our PT / OT who recommend for ECF placement. Our SW / CM did work ECF placement, [place] [facility] does not have any beds available and unable to pay for home PT / OT also. Pt has to pay from his own pocket for home PT / OT or Rehab PT /OT. Pt does not want to pay any of these services and he opted to go home. Pt does understand that complications and concerns if he won't get enough PT / OT. SW is arranging or transportation to d/c him home today. Medially stable at this point, vitals are stable and his Hb stable too. He is tolerating PO intake well. - Time Spent with Patient Total time spent providing and/or coordinating discharge services: - Constitutional Vitals: Temp Pulse Resp BP Pulse Ox 98.3 F 83 22 143/80 97 11/05/16 11:34 11/05/16 11:34 11/05/16 11:34 11/05/16 11:34 11/05/16 11:34 General appearance: Present: cooperative, A&O X 3, morbidly obese, pleasant, no acute distress - Head Head exam: Present: atraumatic, normal inspection - Neck Neck exam general surgery: Present: supple. Absent: tenderness - Respiratory Respiratory exam: Present: decreased breath sounds. Absent: rales, respiratory distress, rhonchi, wheezes - GI/Abdominal GI/Abdominal exam: Present: normal bowel sounds, soft. Absent: rebound, rigid, tenderness - Extremities Exam Extremities exam: Absent: calf tenderness, tenderness - Neurological Exam Neurological exam: Present: alert, oriented X3 Additional comments: chronic lRt residual paresis - Psychiatric Psychiatric exam: Present: normal affect, normal mood - VTE Reasons for not Prescribing Prophylaxis: Not indicated-Anticoagulated or INR therapeutic
== END 2016-11-05 15:25 | disposition home or self-care (01) | DRG 378 ==
LOC: 3ANU 22:34 → EMEROO 22:34 → 3ANU 10-29 03:27 → ICNU 10-29 20:09 → 2ANU 11-01 05:36
PROVIDERS: ADMIT Internal Medicine; ATTEND Internal Medicine
PROC: ENDOEBX (2016-10-30 15:30)

== ENCOUNTER 2017-03-04 15:24 | Inpatient (IN) ==
--- NOTE | 2017-03-04 15:42 | Emergency Department Note ---
Disposition Clinical Impression: Alteration in performance of activities of daily living Humerus surgical neck fracture Qualifiers: Encounter type: initial encounter Fracture type: closed Fracture morphology: unspecified fracture morphology Fracture alignment: nondisplaced Laterality: right Qualified Code(s): S42.214A - Unspecified nondisplaced fracture of surgical neck of right humerus, initial encounter for closed fracture Disposition: Admitted As Inpatient Condition: Undetermined Time of Disposition: 16:57 General Adult HPI - General Chief complaint: ED Extremity Injury, Upper Stated complaint: R humerus fx Time Seen by Provider: 03/04/17 15:26 Source: patient Mode of arrival: EMS Limitations: no limitations Nursing Notes Reviewed: Yes Vital Signs Reviewed: Yes - History of Present Illness HPI Narrative: 76-year-old male with history of previous CVA and right-sided hemiparesis arrives to [facility] emergency department as a [facility] transfer for a right humerus fracture as well as inability to care for himself at home. The patient lives at home himself and is paralyzed on the right side but he typically gets around fairly well utilizing his arms. The patient has a right sided humeral fracture that was noted after a fall one day ago where he was seen at [facility]. The patient was sent home with a sling and swath. The patient went to the [facility] with concern for inability to take care of himself. The [facility] transferred to [facility] emergency department with concern for their own inability to take care of the patient there. The patient denies any other new symptoms other than right upper extremity pain. He is resting comfortably in the room. He is expressing no shortness of breath, no chest pain, no abdominal pain, no new weakness, numbness , tingling. The patient is noted to be in a sling and swath with a right-sided ecchymotic lesion on his right upper extremity associated with his fracture. The patient has distal pulses on the right radius intact. Neurologically intact on his right upper extremity as well. The patient denies any other complaints. Given the patient's social situation, we may need to facilitate this patient to be admitted for possible rehabilitation and further care. The patient was made aware and agrees to plan. Onset (ago): unknown Location: right, upper extremity Pain Severity: moderate Pain Scale: 7 Quality: aching Consistency: constant Improves with: nothing Worsens with: nothing Associated symptoms: Reports: denies other symptoms Treatments Prior to Arrival: none - Related Data Home Medications Medication Instructions Recorded Confirmed Carvedilol [Coreg] 25 mg PO BID 03/14/16 03/04/17 Furosemide [Lasix] 10 mg PO DAILY 03/14/16 03/04/17 Lisinopril [Zestril] 10 mg PO DAILY 03/14/16 03/04/17 Omeprazole [PriLOSEC] 20 mg PO BID 03/14/16 03/04/17 Sennosides/Docusate Sodium 2 tab PO BID 03/14/16 03/04/17 [Senna-Docusate Sodium Tablet] Simvastatin [Zocor] 40 mg PO HS 03/14/16 03/04/17 Cholecalciferol (Vitamin D3) 2,000 unit PO DAILY 10/29/16 03/04/17 [Vitamin D3] Hydrophilic Cream [Basle] 1 appl TP DAILY 10/29/16 03/04/17 Ketoconazole 2% CRM [Nizoral Cream] 1 appl TP BID 10/29/16 03/04/17 Apixaban [Eliquis] 5 mg PO BID 03/04/17 03/04/17 Naproxen [Naprosyn] 500 mg PO BID PRN 03/04/17 03/04/17 Tramadol HCl [Ultram] 100 mg PO QID PRN 03/04/17 03/04/17 Allergies Allergy/AdvReac Type Severity Reaction Status Date / Time No Known Allergies Allergy Verified 03/13/16 23:32 All systems ED: reviewed and negative except as stated. Constitutional: Reports: weakness. Denies: fever, chills ENT ED: Denies: congestion Cardiovascular: Denies: chest pain Respiratory: Denies: dyspnea Gastrointestinal: Denies: abdominal pain Genitourinary: Denies: dysuria Musculoskeletal: Denies: back pain, neck pain, arthralgia, myalgia Neurological: Reports: weakness, paresthesias Past Medical History - Past Medical History Attestation: Yes The following information was validated with the patient. Source: patient, old records reviewed Medical history: Reports: atrial fibrillation, CVA, GERD, other Surgical history: Reports: non-contributory Psychiatric history: Reports: no psych history - Social History Smoking Status: Never smoker Smokeless Tobacco Status: No Alcohol use: Reports: occasionally Drug use: Reports: none Physical Exam - General Limitations: no limitations General appearance: alert, in no apparent distress - Head Head exam: atraumatic, normocephalic, normal inspection - Eye Eye exam: Present: normal appearance, PERRL, EOMI - ENT ENT exam: normal exam, normal oropharynx, mucous membranes moist - Neck Neck exam: Present: normal inspection, full ROM, trachea midline - Chest Chest inspection: Present: normal inspection, symmetric chest wall rise - Respiratory Respiratory exam: Present: normal lung sounds bilaterally - Cardiovascular Cardiovascular exam: Present: tachycardia, irregular rhythm, normal heart sounds - Abdominal Exam Abdominal exam: Present: soft, Non-Tender. Absent: tenderness, distention, guarding, rebound, rigidity - Extremities Exam Extremities exam: Present: other (Patient has noted right upper extremity mild deformity to the right humerus with an ecchymotic lesion on the superior aspect. Neurovascularly intact. Patient has poor range of motion on right lower and upper extremities associated with previous hemiparesis of the right side from previous CVA. Right lower extremity is very swollen at this time but is baseline for the patient.) Course Vital Signs Temperature 97.9 F 03/04/17 15:27 Pulse Rate 97 03/04/17 15:27 Respiratory Rate 19 03/04/17 15:27 Blood Pressure 164/70 03/04/17 15:27 O2 Sat by Pulse Oximetry 97 03/04/17 15:27 Temperature 97.9 F 03/04/17 15:27 Pulse Rate 97 03/04/17 15:27 Respiratory Rate 19 03/04/17 15:27 Blood Pressure 164/70 03/04/17 15:27 O2 Sat by Pulse Oximetry 97 03/04/17 15:27 Oxygen Delivery Oxygen Delivery Room Air Medical Decision Making - [facility] Narrative Medical decision making narrative: Patient's workup here in the emergency department demonstrates no acute process. The patient does have a hematoma of his right elbow. This is well healing at this time. A sling and swath was replaced on his right upper extremity. The patient will be admitted to the hospitalist service for likely placement in a rehabilitation facility. Accepted by Dr. Fonseca. - Lab Data Lab results reviewed: Yes I reviewed the patient's lab results. Result diagrams: 03/04/17 15:35 03/04/17 15:35 Lab Results 03/04/17 03/04/1717 Range/Units 15:35 15:35 16:05 Hgb 12.4 L (12.9-16.9) g/dL Hct 37.4 L (37.5-50.1) % Plt Count 154 (140-400) K/mcL Sodium 141 (136-145) mEq/L Potassium 3.8 (3.5-4.5) mEq/L Chloride 107 (98-109) mEq/L Carbon Dioxide 26 (19-29) mEq/L BUN 17 (8-26) mg/dL Creatinine 1.04 (0.72-1.25) mg/dL Est GFR ( Amer) > 60 (> 60) Est GFR (Non-Af Amer) > 60 (> 60) BUN/Creatinine Ratio 16 (6-26) Glucose 109 H (70-99) mg/dL Calculated Osmolality 294 (280-300) Calcium 10.7 (8.6-10.8) mg/dL Urine Color Dark Yellow (Yellow) Urine Clarity Clear (Clear) Urine pH 6.0 (5.0-8.0) pH Units Ur Specific [place] 1.028 H (1.010-1.025) Urine Protein 30 H (Neg-Trace) mg/dL Urine Glucose (UA) Normal (Normal) mg/dL Urine Ketones Negative (Negative) mg/dL Urine Blood Negative (Negative) Urine Nitrite Negative (Negative) Urine Bilirubin Small H (Negative) Urine Urobilinogen Normal (Normal) mg/dL Ur Leukocyte Esterase Negative (Negative) Urine Microscopic RBC 0-3 (0-3) per hpf Urine Microscopic WBC 0-3 (0-3) per hpf Ur Squamous Epith Cells Moderate H (None-Few) per lpf Urine Bacteria None Seen (None-Few) per hpf Hyaline Casts None Seen (None-Few) per lpf Ur Culture Indicated? NO (NO) - Radiology Data Radiology results reviewed: Yes I reviewed the patient's radiology results. - EKG Data EKG #1 EKG attestation: Yes I reviewed and interpreted this EKG. EKG results narrative: Heart rate 10 2 bpm. QTc [address] ms[address]. No ST elevation or ST depression noted. No acute changes noted. Attestation Statement - Attestation Attestation: I examined this patient and my medical decision-making was reviewed with the Resident Physician. I agree with the documented findings, disposition and treatment plan as described except to the extent set forth below. Obese male in poor health with humerus fx who is unable to care for himself at home. Exam is negative for signs of compartment syndrome - normal motor/sensory exam, no POOP to exam, no pain w passive stretch. Stable, will admit.
[2017-03-04] MEDS ORDERED: *HR* HYDROmorphone (PF) 1 MG/ML SYRINGE IVP ONE (16:14)
[2017-03-04 16:18] LABS: Hematocrit 37.4 % (37.5-50.1); Hemoglobin 12.4 g/dL (12.9-16.9)
[2017-03-04 16:19] LABS: Bilirubin,Urine Small (Negative); Blood,Urine Negative (Negative); Clarity,Urine Clear (Clear); Color,Urine Dark Yellow (Yellow); Glucose,Urine (UA) Normal (Normal); Ketones,Urine Negative (Negative); Leukocyte Esterase,Urine Negative (Negative); Nitrite,Urine Negative (Negative); Protein,Urine 30 mg/dL (Neg-Trace); Specific Gravity,Urine 1.028 (1.010-1.025); Urobilinogen,Urine Normal (Normal)
[2017-03-04 16:22] LABS: Bacteria,Urine None Seen per hpf (None-Few); Hyaline Casts,Urine None Seen per lpf (None-Few); RBC,Urine 0-3 per hpf (0-3); Squamous Epithelial Cell,Urine Moderate per lpf (None-Few); WBC,Urine 0-3 per hpf (0-3)
[2017-03-04 16:30] LABS: BUN/Creatinine Ratio 16 (6-26); Blood Urea Nitrogen 17 mg/dL (8-26); Calcium 10.7 mg/dL (8.6-10.8); Carbon Dioxide 26 mEq/L (19-29); Chloride 107 mEq/L (98-109); Glucose 109 mg/dL (70-99); Osmolality,Calculated 294 (280-300); Potassium 3.8 mEq/L (3.5-4.5); Sodium 141 mEq/L (136-145); eGFR For African Americans > 60 (> 60); eGFR For Non-African Americans > 60 (> 60)
[2017-03-04] MEDS ORDERED: 0.9 % Sodium Chloride 1,000 ML IVC SCH (21:00)
[2017-03-04] MEDS ORDERED: Acetaminophen 325 MG TABLET PO PRN (21:00)
[2017-03-04] MEDS ORDERED: Naloxone 0.4 MG/ML INJ IVP PRN (21:00)
[2017-03-04] MEDS ORDERED: Ondansetron 4 MG/2 ML VIAL IVP PRN (21:00)
--- NOTE | 2017-03-04 21:07 | Internal Med History&Physical ---
Date of Encounter: 03/04/17 Time of Encounter: 20:45 Assessment and Plan (1) Humerus surgical neck fracture Current visit: Yes Status: Acute Right humerus neck fracture secondary to mechanical fall Continue sling and swath Orthopedics consult PT/OT consult, social service manager consult Cardiac telemetry, labs in a.m., monitor closely Qualifiers: Encounter type: initial encounter Fracture type: closed Fracture morphology: unspecified fracture morphology Fracture alignment: nondisplaced Laterality: right Qualified Code(s): S42.214A - Unspecified nondisplaced fracture of surgical neck of right humerus, initial encounter for closed fracture (2) Atrial fibrillation Current visit: Yes Status: Chronic Chronic atrial fibrillation, rate controlled Continue on Coreg, Eliquis for anticoagulation Qualifiers: Atrial fibrillation type: chronic Qualified Code(s): I48.2 - Chronic atrial fibrillation (3) DVT prophylaxis Current visit: Yes Status: Acute Continue home dose of Eliquis Internal Medicine - H&P: HPI Chief complaint: Right arm pain Admitted From: Emergency Dept Plans for Post Hospital Care: Transfer Long Term Facility History of present illness: Mr. Gore is a 76 year old male with past medical history of CVA, atrial fibrillation and hypertension. Patient presented to the ED as a transfer from the [facility]. Patient was found to have a right humerus fracture secondary to mechanical fall. Examined in the room. Patient is awake and alert. Not in any distress. Able to provide limited history. No family members at bedside. Patient states he fell at the nursing facility yesterday. Complains of right upper arm pain. He also complains of swelling. Patient does have a history of CVA and has right- sided hemiparesis. He does have severe edema on the right lower extremity. Patient [facility] presented to [facility] and was sent home with a sling and swath. Patient then presented to the [facility] with concern for inability to take care of himself. Patient was then transferred to our facility. Patient denies chest pain or shortness of breath or dizziness or headache. His only complaint is right upper arm pain. No other associated symptoms. No other acute complaints. Initial workup in the ED is negative. Patient is being admitted for right humerus fracture. He will need pain control. We will also consult PT and OT. supervisor gate services consult. Patient has been explained about his condition and bladder care. He understood and agreed. No unanswered questions. CODE STATUS full code. Past Med Surg Social Fam HX - Past Medical History Medical history: atrial fibrillation, CVA, GERD, other Psychiatric history: no psych history - Past Surgical History Surgical History: non-contributory - Social History Smoking Status: Never smoker Smokeless Tobacco Status: No Alcohol use: occasionally Drug use: none - Family History Mother Adopted: No Living Status: Hx Family Cardiac Disorders: No Hx Family Respiratory Disorders: No Hx Family Cancer: No Hx Family GI Disorders: No Hx Family Endocrine Disorder: No Hx Family Neuromuscular Disorders: No Hx Family Neurologic Disorders: No Hx Family HEENT Disorders: No Hx Family Autoimmune Disorders: No Internal Medicine - H&P: Meds Carvedilol [Coreg] 25 mg PO BID 03/14/16 [History] Furosemide [Lasix] 10 mg PO DAILY 03/14/16 [History] Lisinopril [Zestril] 10 mg PO DAILY 03/14/16 [History] Omeprazole [PriLOSEC] 20 mg PO BID 03/14/16 [History] Sennosides/Docusate Sodium [Senna-Docusate Sodium Tablet] 2 tab PO BID 03/14/16 [History] Simvastatin [Zocor] 40 mg PO HS 03/14/16 [History] Cholecalciferol (Vitamin D3) [Vitamin D3] 2,000 unit PO DAILY 10/29/16 [History] Hydrophilic Cream [Basle] 1 appl TP DAILY 10/29/16 [History] Ketoconazole 2% CRM [Nizoral Cream] 1 appl TP BID 10/29/16 [History] Apixaban [Eliquis] 5 mg PO BID 03/04/17 [History] Naproxen [Naprosyn] 500 mg PO BID PRN 03/04/17 [History] Tramadol HCl [Ultram] 100 mg PO QID PRN 03/04/17 [History] 3 Allergy/AdvReac Type Severity Reaction Status Date / Time No Known Allergies Allergy Verified 03/13/16 23:32 All Systems PM: A 10-system review of systems was performed and is negative for pertinent findings except as documented above in the HPI. - Constitutional Constitutional: fatigue, weakness, no fever(s) - EENT Eyes: no blurry vision - Cardiovascular Cardiovascular ROS IM: no chest pain, no diaphoresis, no dyspnea, no dyspnea on exertion, no edema, no lightheadedness, no orthopnea, no palpitations, no syncope - Respiratory Respiratory: no cough, no dyspnea, no hemoptysis, no dyspnea on exertion, no wheezing, no chest congestion - Gastrointestinal Gastrointestinal: no abdominal pain, no bloating, no cramping, no diarrhea, no hematemesis, no hematochezia, no nausea, no vomiting - Genitourinary Genitourinary ROS male: no dysuria - Musculoskeletal Additional comments: Right arm pain - Neurological Neurological ROS: focal weakness (History of right sided hemiplegia due to old CVA), frequent falls, no abnormal gait, no confusion, no convulsions, no dizziness, no loss of vision, no numbness, no tingling - Constitutional Vitals: Temp Pulse Resp BP Pulse Ox 97.9 F 98 20 155/78 95 03/04/17 20:33 03/04/17 20:33 03/04/17 20:33 03/04/17 20:33 03/04/17 20:33 General appearance: Present: cooperative, A&O X 3, pleasant, no acute distress, answers questions appropriately - Head Head exam: Present: atraumatic - Eye Eye exam: Present: EOMI - ENT ENT exam: Present: mucous membranes dry - Respiratory Respiratory exam: Present: CTAB. Absent: accessory muscle use, rales, respiratory distress, rhonchi, wheezes, tachypnea - Cardiovascular Cardiovascular exam: Present: RRR, +S1, +S2 - GI/Abdominal GI/Abdominal exam: Present: soft. Absent: distended, firm, guarding, tenderness - Extremities Exam Extremities exam: Present: pedal edema (Bilateral leg 2+ edema, worse on the right side with the lymphedema and stasis dermatitis), radial pulses palpable and symmetrical. Absent: calf tenderness, cyanotic - Neurological Exam Neurological exam: Present: alert, oriented X3. Absent: facial droop, speech deficit Additional comments: Patient has right-sided hemiplegia from previous CVA. Internal Med - H&P Results - Labs CBC & Chem 7: 03/04/17 15:35 03/04/17 15:35
[2017-03-04 22:09] LABS: INR 1.5
[2017-03-04] MEDS: APIXABAN 5 MG TABLET PO SCH (22:29)
[2017-03-04] MEDS: Sennosides/Docusate Sodium TABLET PO SCH (22:29)
[2017-03-04] MEDS: Ketoconazole 2% CRM 15 GM TUBE TP SCH (22:30)
[2017-03-04] MEDS: *HR* Morphine 2 MG/ML SYRINGE IVP PRN (22:30)
[2017-03-05] MEDS ORDERED: *HR* Morphine 2 MG/ML SYRINGE IVP ONE (00:45)
[2017-03-05 05:52] LABS: Basophils % 0.3 %; Eosinophils # 0.2 K/mcL (0.0-0.6); Eosinophils % 2.4 %; Immature Granulocytes % 0.3 % (0-4); Lymphocytes # 0.8 K/mcL (0.6-4.6); Lymphocytes % 12.4 %; Mean Corpuscular HGB Conc 33.2 g/dL (31.6-35.5); Mean Corpuscular Hemoglobin 28.2 pg (28.0-33.3); Mean Corpuscular Volume 84.9 fL (83.0-100.0); Mean Platelet Volume 10.9 fL (9.4-12.4); Monocytes # 0.7 K/mcL (0.0-1.3); Neutrophils # 4.9 K/mcL (1.6-8.9); Platelet Count 124 K/mcL (140-400); Red Blood Count 3.65 M/mcL (4.19-5.50); Red Cell Distribution Width 14.9 % (11.5-14.5); Segmented Neutrophils % 74.6 %
[2017-03-05 05:55] LABS: Hemoglobin 10.3 g/dL (12.9-16.9)
[2017-03-05 06:10] LABS: BUN/Creatinine Ratio 18 (6-26); Blood Urea Nitrogen 17 mg/dL (8-26); Calcium 9.6 mg/dL (8.6-10.8); Carbon Dioxide 21 mEq/L (19-29); Chloride 108 mEq/L (98-109); Glucose 130 mg/dL (70-99); Magnesium 1.3 mg/dL (1.6-2.6); Osmolality,Calculated 289 (280-300); Potassium 4.1 mEq/L (3.5-4.5); Sodium 138 mEq/L (136-145); eGFR For African Americans > 60 (> 60); eGFR For Non-African Americans > 60 (> 60)
[2017-03-05] MEDS: APIXABAN 5 MG TABLET PO SCH (09:26)
[2017-03-05] MEDS: Furosemide 20 MG TABLET PO SCH (09:27)
[2017-03-05] MEDS: Ketoconazole 2% CRM 15 GM TUBE TP SCH ×2 (09:28→21:58)
[2017-03-05] MEDS: Sennosides/Docusate Sodium TABLET PO SCH ×2 (09:32→21:58)
[2017-03-05] MEDS: Cholecalciferol (D-3) 1,000 UNIT TABLET PO SCH (09:32)
[2017-03-05] MEDS: *HR* Morphine 2 MG/ML SYRINGE IVP PRN (10:46)
[2017-03-05] MEDS ORDERED: Magnesium Oxide 400 MG TABLET PO ONE (13:34)
--- NOTE | 2017-03-05 13:49 | Internal Med Progress Note ---
Date of Encounter: 03/05/17 Time of Encounter: 09:00 - Assessment and plan (1) Atrial fibrillation Current Visit: Yes Status: Chronic Assessment and plan: hold eliquis. c/w coreg. Rate controlled Qualifiers: Atrial fibrillation type: chronic Qualified Code(s): I48.2 - Chronic atrial fibrillation (2) DVT prophylaxis Current Visit: Yes Status: Acute Assessment and plan: stop eliquis and place SCDs (3) Humerus surgical neck fracture Current Visit: Yes Status: Acute Assessment and plan: c/w pain control. ortho to see. Patient is in a sling. PT/OT. Likely will need placement. Qualifiers: Encounter type: initial encounter Fracture type: closed Fracture morphology: unspecified fracture morphology Fracture alignment: nondisplaced Laterality: right Qualified Code(s): S42.214A - Unspecified nondisplaced fracture of surgical neck of right humerus, initial encounter for closed fracture (4) Hypertension Current Visit: Yes Status: Acute Assessment and plan: c/w coreg/lisinopril. BP is stable Qualifiers: Hypertension type: essential hypertension Qualified Code(s): I10 - Essential (primary) hypertension - Subjective Interval history: No acute events. Patient reportedly has a left humerus fracture. He has a bruise on his left forearm with skin tear. He is tender there. afebrile - Constitutional Vitals: Temp Pulse Resp BP Pulse Ox 97.9 F 76 20 135/77 93 03/05/17 11:02 03/05/17 11:02 03/05/17 11:02 03/05/17 11:02 03/05/17 11:02 General appearance: Present: cooperative, A&O X 3, pleasant, no acute distress, answers questions appropriately Exam: GEN: NAD CVS: RRR. S1, S2, No m/r/g RESP: CTAB ABD: soft, NT, ND,+BS EXT: right lower extremity chronic swelling. Right arm is in a sling. Right forearm has a darkened bruise/hematoma with a couple of skin tears. No obvious bleed NEURO: right sided paralysis. Internal Medicine: Result - Labs CBC & Chem 7: 03/05/17 04:59 03/05/17 04:59 Labs: Short CBC 03/05/17 Range/Units 04:59 WBC 6.6 (4.3-11.1) K/mcL Hgb 10.3 L D (12.9-16.9) g/dL Hct 31.0 L (37.5-50.1) % Plt Count 124 L (140-400) K/mcL Neutrophils # 4.9 (1.6-8.9) K/mcL BMP 03/05/17 04:59 Sodium 138 Potassium 4.1 Chloride 108 Carbon Dioxide 21 BUN 17 Creatinine 0.93 Glucose 130 H Calcium 9.6 - ABG Interpretation ABG results: PT/INR, D-dimer PT 16.0 Seconds (9.4-12.1) H 03/04/17 21:46 Consult Discharge Plan - Plan Referrals: [facility] [Primary Care Provider] -
[2017-03-05] MEDS: *HR* HYDROcodone/Acet 5/325 mg TABLET PO PRN (17:10)
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
--- NOTE | 2017-03-05 19:17 | Electrocardiograph Report ---
[place] [id number] Test Date: 2017-03-04 Pat Name: Ciro Gore Department: 104 Room: [facility] Gender: M Pesticide Use Medical Coordinator: OBDULIA : 1940 Requested By: Adin Wood Order Number: [id number] Reading MD: Bernard Mccann DO Measurements Intervals [place] Rate: 102 P: RI: 0 QRS: -17 QRSD: 97 T: 7 QT: 348 QTc: 407 Interpretive Statements ATRIAL FIBRILLATION WITH RAPID VENTRICULAR RESPONSE MINIMAL ST DEPRESSION ABNORMAL RHYTHM ECG Electronically Signed On 03-05-2017 19:16:07 EST by Bernard Mccann DO
[2017-03-06 05:55] LABS: Basophils % 0.3 %; Eosinophils # 0.2 K/mcL (0.0-0.6); Eosinophils % 2.8 %; Hematocrit 30.2 % (37.5-50.1); Hemoglobin 9.8 g/dL (12.9-16.9); Immature Granulocytes % 0.8 % (0-4); Lymphocytes # 0.8 K/mcL (0.6-4.6); Lymphocytes % 12.7 %; Mean Corpuscular HGB Conc 32.5 g/dL (31.6-35.5); Mean Corpuscular Hemoglobin 27.7 pg (28.0-33.3); Mean Corpuscular Volume 85.3 fL (83.0-100.0); Mean Platelet Volume 11.3 fL (9.4-12.4); Monocytes # 0.6 K/mcL (0.0-1.3); Monocytes % 9.7 %; Neutrophils # 4.4 K/mcL (1.6-8.9); Platelet Count 105 K/mcL (140-400); Red Blood Count 3.54 M/mcL (4.19-5.50); Red Cell Distribution Width 14.7 % (11.5-14.5); Segmented Neutrophils % 73.7 %
[2017-03-06 06:13] LABS: BUN/Creatinine Ratio 19 (6-26); Blood Urea Nitrogen 18 mg/dL (8-26); Calcium 9.6 mg/dL (8.6-10.8); Carbon Dioxide 21 mEq/L (19-29); Chloride 106 mEq/L (98-109); Glucose 111 mg/dL (70-99); Osmolality,Calculated 285 (280-300); Potassium 3.9 mEq/L (3.5-4.5); Sodium 136 mEq/L (136-145); eGFR For African Americans > 60 (> 60); eGFR For Non-African Americans > 60 (> 60)
[2017-03-06] MEDS: Sennosides/Docusate Sodium TABLET PO SCH ×2 (08:56→20:30)
[2017-03-06] MEDS: Ketoconazole 2% CRM 15 GM TUBE TP SCH ×2 (08:56→20:30)
[2017-03-06] MEDS: Cholecalciferol (D-3) 1,000 UNIT TABLET PO SCH (08:57)
[2017-03-06] MEDS: Furosemide 20 MG TABLET PO SCH (08:57)
[2017-03-06] MEDS: *HR* HYDROcodone/Acet 5/325 mg TABLET PO PRN (08:59)
--- NOTE | 2017-03-06 10:48 | Orthopedics Progress Note ---
Date of Encounter: 03/06/17 Time of Encounter: 10:45 - Assessment and Plan (1) Fracture of humerus, proximal, right, closed Current Visit: Yes Status: Acute I did discuss the diagnosis in detail with the patient as well as his stepdaughter. The patient has a right nondisplaced proximal humerus fracture. Recommendation at this point is nonoperative management in the form of pendulum swings and a sling for comfort. Nonweightbearing to the right upper extremity. Given the significant contusion on the lateral elbow I will order dedicated x- rays of the right elbow and follow-up with this. He will require likely rehabilitation, particularly combined with his hemiparesis. I will follow up on the right elbow x-rays with new recommendations as needed. Qualifiers: Qualified Code(s): S42.201A - Unspecified fracture of upper end of right humerus, initial encounter for closed fracture Subjective Interval history: S: Expected pain to the right shoulder And right elbow. O: Afebrile and vital signs are stable Right brachium with swelling and tenderness over the shoulder and lateral elbow Chronic deformity to the right hand from prior stroke with decreased motor ability as a result X-rays of the right shoulder show a nondisplaced proximal humerus fracture X-rays of the right elbow do not show any definite fractures however given the joint effusion there may be an occult radial head fracture A: Nondisplaced right proximal humerus fracture and probable occult fracture to the right elbow P: At this point my recommendation is observation for both the right shoulder and elbow with repeat x-ray in 1 week. Nonweightbearing to the right upper extremity Motion exercises such as pendulum swings to the right shoulder and motion as tolerated to the right elbow with therapy Follow-up in the office with me in 1 week for clinical reevaluation or sooner if needed Objective Vital signs: Vital Signs Temp Pulse Resp BP Pulse Ox 03/06/17 06:50 98.6 F 68 18 129/68 98 03/06/17 05:21 98.4 F 60 20 127/63 97 03/05/17 23:48 98.0 F 70 22 122/68 96 03/05/17 19:47 98.0 F 72 20 111/56 94 03/05/17 14:20 98.5 F 73 20 158/68 93 03/05/17 11:02 97.9 F 76 20 135/77 93 Intake and Output 03/05/17 03/06/17 03/06/17 23:59 07:59 15:59 Intake Total 1650 / 1650 Output Total 250 / 250 0 / 0 Balance 1400 / 1400 0 / 0 Intake: IV Fluids 1000 / 1000 0.9 % Sodium Chloride 1,000 ML 1000 / 1000 @ 60 mls/hr IVC .[id number] LUCHO Rx #:[id number] Oral 650 / 650 Output: Urine 250 / 250 0 / 0 Other: Meal Dinner Percent of Meal Consumed 5% # Urine Diapers 1 - Labs CBC & BMP: 03/06/17 05:19 03/06/17 05:19 Labs: Abnormal lab results RBC 3.54 M/mcL (4.19-5.50) L 03/06/17 05:19 Hgb 9.8 g/dL (12.9-16.9) L 03/06/17 05:19 Hct 30.2 % (37.5-50.1) L 03/06/17 05:19 MCH 27.7 pg (28.0-33.3) L 03/06/17 05:19 RDW 14.7 % (11.5-14.5) H 03/06/17 05:19 Plt Count 105 K/mcL (140-400) L 03/06/17 05:19 PT 16.0 Seconds (9.4-12.1) H 03/04/17 21:46 Glucose 111 mg/dL (70-99) H 03/06/17 05:19 Magnesium 1.3 mg/dL (1.6-2.6) L 03/05/17 04:59 Ur Specific [place] 1.028 (1.010-1.025) H 03/04/17 16:05 Urine Protein 30 mg/dL (Neg-Trace) H 03/04/17 16:05 Urine Bilirubin Small (Negative) H 03/04/17 16:05 Ur Squamous Epith Cells Moderate per lpf (None-Few) H 03/04/17 16:05 Consult Discharge Plan - Plan [facility]errals: [facility] [Primary Care Provider] -
--- NOTE | 2017-03-06 12:03 | Discharge Summary ---
Date of Encounter: 03/07/17 Time of Encounter: 12:00 - Discharge Diagnosis (1) Atrial fibrillation Priority: Secondary Status: Chronic Qualifiers: Atrial fibrillation type: chronic Qualified Code(s): I48.2 - Chronic atrial fibrillation (2) Humerus surgical neck fracture Priority: Primary Status: Acute Qualifiers: Encounter type: initial encounter Fracture type: closed Fracture morphology: unspecified fracture morphology Fracture alignment: nondisplaced Laterality: right Qualified Code(s): S42.214A - Unspecified nondisplaced fracture of surgical neck of right humerus, initial encounter for closed fracture (3) Hypertension Priority: Secondary Status: Acute Qualifiers: Hypertension type: essential hypertension Qualified Code(s): I10 - Essential (primary) hypertension - Discharge Medications Prescriptions: HYDROcodone/Acet 5/325 mg [Chappell 5-325 mg] 1 tab PO Q4HR PRN #10 tablet PRN Reason: Pain Home Medications: Carvedilol [Coreg] 25 mg PO BID 03/14/16 [History] Furosemide [Lasix] 10 mg PO DAILY 03/14/16 [History] Lisinopril [Zestril] 10 mg PO DAILY 03/14/16 [History] Omeprazole [PriLOSEC] 20 mg PO BID 03/14/16 [History] Sennosides/Docusate Sodium [Senna-Docusate Sodium Tablet] 2 tab PO BID 03/14/16 [History] Simvastatin [Zocor] 40 mg PO HS 03/14/16 [History] Cholecalciferol (Vitamin D3) [Vitamin D3] 2,000 unit PO DAILY 10/29/16 [History] Hydrophilic Cream [Basle] 1 appl TP DAILY 10/29/16 [History] Ketoconazole 2% CRM [Nizoral Cream] 1 appl TP BID 10/29/16 [History] Naproxen [Naprosyn] 500 mg PO BID PRN 03/04/17 [History] Tramadol HCl [Ultram] 100 mg PO QID PRN 03/04/17 [History] HYDROcodone/Acet 5/325 mg [[place]appell 5-325 mg] 1 tab PO Q4HR PRN #10 tablet [Rx] Allergies/Adverse Reactions: 3 Allergy/AdvReac Type Severity Reaction Status Date / Time No Known Allergies Allergy Verified 03/13/16 23:32 Date of admission: 03/04/17 17:05 [facility] physician: [facility] Consults: 03/04/17 21:05 Consult to Occupational Therapy [CONS] Routine Comment: Evaluate, develop and implement POC Reason for Consult: OT eval Consult to Orthopedic Surgery [CONS] Routine Consulting Provider: Orthopedic and Sports Medicine Reason for Consult: right humerus fracture Call Completed: No Consult to Physical Therapy [CONS] Routine Comment: Evaluate, develop and implement POC Reason for Consult: PT eval Consult to [employer] Broiler [employer] Fry [CONS] Routine Reason for SW Consult: d/c planning 03/06/17 11:51 Consult to Physical Therapy [CONS] Routine Comment: Evaluate, develop and implement POC Reason for Consult: Therapy/placmenet needs 03/06/17 11:52 Consult to Occupational Therapy [CONS] Routine Comment: Evaluate, develop and implement POC Reason for Consult: therapy/placement needs - Patient Status Disposition: Transfer [facility] Condition: Fair Functional capacity at discharge: wheelchair bound Overall status at discharge: patient is back to baseline - Discharge Instructions Follow Up With: MD,PCP [Primary Care Provider] - Nestor Guerrero MD [Partnered Physician] - 03/13/17 10:00 am (In 1 week ) Additional Instructions: Hold Eliquis for 1 week. Repeat H/H on 03/08 - Diet and Activity Activity: other (NWB to right upper ext) Diet: low salt diet Hospital course: Mr. Gore is a 76 year old male with past medical history of CVA, atrial fibrillation and hypertension. Patient presented to the ED as a transfer from the [facility]. Patient was found to have a right humerus fracture secondary to mechanical fall. No surgical needs per ortho and was put in a sling with ortho follow up. He had a large bruise/hematoma on right elbow and orthopedic was aware. An xray of elbow showed possibly effusion. He was on eliquis which I held and recommend holding for a week. I recommend repeating a CBC in a couple of days as his H/H did drop somewhat. He was hemodynamically stable for discharge to the [facility]. - Time Spent with Patient Total time spent providing and/or coordinating discharge services: - Constitutional Vitals: Temp Pulse Resp BP Pulse Ox 98.9 F 73 16 134/65 96 03/06/17 10:18 03/06/17 10:18 03/06/17 10:18 03/06/17 10:18 03/06/17 10:18 General appearance: Present: cooperative, A&O X 3, pleasant, no acute distress, answers questions appropriately Exam: GEN: NAD CVS: RRR. S1, S2, No m/r/g RESP: CTAB ABD: soft, NT, ND,+BS EXT: right lower extremity chronic swelling. Right arm is in a sling. Right forearm has a darkened bruise/hematoma with a couple of skin tears. No obvious bleed NEURO: right sided paralysis.
--- NOTE | 2017-03-06 12:07 | Physician Discharge Referral ---
[facility] Referral Info Transfer To: [place] - Diagnosis (1) Atrial fibrillation Priority: Secondary Status: Chronic (2) DVT prophylaxis Status: Acute (3) Humerus surgical neck fracture Priority: Primary Status: Acute (4) Hypertension Priority: Secondary Status: Acute - Transfer Medications Prescriptions: HYDROcodone/Acet 5/325 mg [[place] 5-325 mg] 1 tab PO Q4HR PRN #10 tablet PRN Reason: Pain Home Medications: Carvedilol [Coreg] 25 mg PO BID 03/14/16 [History] Furosemide [Lasix] 10 mg PO DAILY 03/14/16 [History] Lisinopril [Zestril] 10 mg PO DAILY 03/14/16 [History] Omeprazole [PriLOSEC] 20 mg PO BID 03/14/16 [History] Sennosides/Docusate Sodium [Senna-Docusate Sodium Tablet] 2 tab PO BID 03/14/16 [History] Simvastatin [Zocor] 40 mg PO HS 03/14/16 [History] Cholecalciferol (Vitamin D3) [Vitamin D3] 2,000 unit PO DAILY 10/29/16 [History] Hydrophilic Cream [Basle] 1 appl TP DAILY 10/29/16 [History] Ketoconazole 2% CRM [Nizoral Cream] 1 appl TP BID 10/29/16 [History] Naproxen [Naprosyn] 500 mg PO BID PRN 03/04/17 [History] Tramadol HCl [Ultram] 100 mg PO QID PRN 03/04/17 [History] HYDROcodone/Acet 5/325 mg [[place] 5-325 mg] 1 tab PO Q4HR PRN #10 tablet [Rx] Allergies/Adverse Reactions: 3 Allergy/AdvReac Type Severity Reaction Status Date / Time No Known Allergies Allergy Verified 03/13/16 23:32 - Respiratory Orders Smoking Cessation: Smoking cessation has been advised. For more information, call the [place] Tobacco Quit Line at 8-982-FIDY-NOW. - Mobility Orders Other (wheelchair bound) - Rehabiliation Orders Rehab Potential: Fair Rehab Orders: Evaluation for Physical Therapy, Evaluation for Occupational Therapy - Diet Orders No Added Salt (ISI) CERTIFICATION: I certify that the transfer of the above named patient to an Extended Care Facility is necessary for the continuing treatment of the diagnosis listed. The above information is true and accurate reflection of patient's current condition. Confidential - Redisclosure prohibited without a patient's written consent.
[2017-03-06 16:17] LABS: Magnesium 1.5 mg/dL (1.6-2.6)
[2017-03-06] MEDS ORDERED: Magnesium Oxide 400 MG TABLET PO SCH (16:45)
[2017-03-06] MEDS ORDERED: Magnesium Oxide 400 MG TABLET PO ONE (16:48)
[2017-03-07 06:36] VITALS: BP 129/68
[2017-03-07 07:33] LABS: Basophils % 0.2 %; Eosinophils # 0.2 K/mcL (0.0-0.6); Hematocrit 28.5 % (37.5-50.1); Hemoglobin 9.7 g/dL (12.9-16.9); Immature Granulocytes % 1.1 % (0-4); Lymphocytes # 0.9 K/mcL (0.6-4.6); Lymphocytes % 15.7 %; Mean Corpuscular Hemoglobin 28.4 pg (28.0-33.3); Mean Corpuscular Volume 83.3 fL (83.0-100.0); Mean Platelet Volume 11.9 fL (9.4-12.4); Monocytes # 0.5 K/mcL (0.0-1.3); Monocytes % 8.6 %; Neutrophils # 4.1 K/mcL (1.6-8.9); Platelet Count 117 K/mcL (140-400); Red Blood Count 3.42 M/mcL (4.19-5.50); Red Cell Distribution Width 14.8 % (11.5-14.5); Segmented Neutrophils % 71.4 %
[2017-03-07 07:51] LABS: BUN/Creatinine Ratio 21 (6-26); Blood Urea Nitrogen 21 mg/dL (8-26); Calcium 9.3 mg/dL (8.6-10.8); Carbon Dioxide 18 mEq/L (19-29); Chloride 109 mEq/L (98-109); Glucose 114 mg/dL (70-99); Osmolality,Calculated 288 (280-300); Potassium 4.2 mEq/L (3.5-4.5); Sodium 137 mEq/L (136-145); eGFR For African Americans > 60 (> 60); eGFR For Non-African Americans > 60 (> 60)
[2017-03-07] MEDS: Ketoconazole 2% CRM 15 GM TUBE TP SCH (07:59)
[2017-03-07] MEDS: Furosemide 20 MG TABLET PO SCH (07:59)
[2017-03-07] MEDS: Cholecalciferol (D-3) 1,000 UNIT TABLET PO SCH (07:59)
[2017-03-07] MEDS: Sennosides/Docusate Sodium TABLET PO SCH (07:59)
[2017-03-07] MEDS: *HR* HYDROcodone/Acet 5/325 mg TABLET PO PRN (09:04)
== END 2017-03-07 11:19 | DRG 563 ==
LOC: EMEROO 15:24 → 3NENU 17:05
PROVIDERS: ADMIT Hospitalist; ATTEND Internal Medicine